=== PATIENT | male | born 1965 | race Caucasian/White ===

== ENCOUNTER 2017-08-16 16:37 | Inpatient (IN) | payer OTHER ==
[~2017-08-16] VITALS: Ht 180.3 cm; Wt 80.5 kg
--- NOTE | 2017-08-16 19:16 | IP CRISIS DIAG ASSESS PSYCH ---
Diagnostic Assessment Basic Assessment Insurance Authorization: Insurance #1: Insurance name: DEPARTMENT OF [facility] Phone number: Policy number: [id number] Group number: Authorization number: Primary Care Physician: Patient's PCP: Unknown PCP's Phone Number: Patient's Quote: "Cymbalta was not working... feeling my heart going fast" Present Illness: Pt is a 51 year old male BIBA as a Direct Admit from the [place] ED. 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 Pt is currently diagnosed with Major Depressive Disorder, Severe, Recurrent. He has had 1 Suicide Attempt 20 years ago when he was in the in [place]- he jumped off the bridge that was 30' high which resulted in splecnectomy, multiples fractures including a skull fracture. He also has chronic lower back pain as a result of S.A. Pt has had 1 impatient hospitalization post S.A. 20 years ago. He is currently in outpatient treatment with Donald Roach APRN at the [place] outpatient clinic. His most recent appointment was on 08/06/17. He recently started Cymbalta and Trazodone. Past medications include nortriptyline, paxil, zoloft, and wellbutrin. He stated that Wellbutrin really helped him the best and he felt better when taking it. Recently, he has become increasingly depressed and increased isolation- not in touch with his brother in 2 weeks (whom he typically speaks to daily). [facility] flat affect. He presented with anhedonia, decerased concentration, memory loss, inablity to stay focused on tasks and decreased appetite. He does not have an active plan to commit suicide or current those to kill himself however he does think that he should have succeeded in killing himself 20 years ago. He denies HI and AH/VH. 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 He further reports patinet is dysfunctional- not answering questions, rocking from side to side and having long pauses between answers. It should be noted that patient presented the same way, not answering quesitons therefore this document is being completed based on paperwork sent over from the [place]. Mr. Dawkins additionally reported that the patient was walking around like a "zombie". Patient's Address: [address] [place] [address] Other Phone Number: Who Do You Live With? Other (see notes) (lives at [facility]) Feel Safe Where You Live? Yes Marital Status: Do You Have Children? Yes Ages? unk Primary Language? Macanese Language(s) Spoken At Home: Macanese Family/Informants Interviewed: no family/collateral ID'd Allergies - Coded Allergies: morphine (UNKNOWN 08/16/17) Consequences of Psych Med Use: Patient recently started Cymbalta and reports feeling dizzy and an increased heart rate. Patient reports Wellbutrin worked the best in the past. Toxicology Screen Completed? Yes Results: negative Symptoms of Use: n/a Past History Past Medical History Medical History: Depression Past Surgical History Surgical History non-contributory Abuse/Trauma History Trauma History/Current Trauma: Denies Legal History Current Legal Status: none Have you ever been arrested? No Psychosocial History Strengths/Capabilities: patient has had stable housing with [facility] for 6 years. Psychiatric Treatment History Psych Treatment Psychiatric Treatment Yes Inpatient Treatment Yes Outpatient Treatment Yes Location of Treatment [place]- [place] last appt 08/06, inpatient 20 years ago post S.A. Reason for Treatment depression and SI Dates of Treatment currently pt at [place] outpatient; inpatient 20 years ago Response to Treatment fair Diagnosis by History: Major Depressive Disorder, Severe, Recurrent Risk Factors: high anxiety/distress, history of suicide atmpts, SA/MH hospitalized, lack of outcome concern, male, limited support Substance Use/Abuse History Drug Use/Abuse minimum 12mo Hx Substances Used/Abused No Substance Abuse Treatment Substance Abuse Treatment Past Substance Abuse [place] No Sexual History Sexually Active No Sexual Orientation Heterosexual Current Mental Status Mental Status Orientation: Person, Place, Situation Affect: Anxious, Flat, Hopeless, Sad Speech: Soft Neuro-vegetative: Anhedonia, Concentration Poor, Helpless, Loss of Interest Appearance Appearance- Dress/Hygiene: Patient presented in hospital attire - blue paper scrubs as he was just tranferred from the [place] ED to . No remarkable features. Behaviors Thought Process: WNL Thought Content: WNL Memory: WNL Insight: Poor SI/HI Risk Assessment - Minimum 6mo History- Past Suicidal Ideation/Attempts Yes Current Suicidal Ideation/Att No Past Homicidal Ideation/Att: No Current Homicidal Ideation/Attempts No Needs/Init TX Plan/Goals: Elevate mood medication evaluate increase social supports AUDIT-C Questionnaire: AUDIT-C Questionnaire: Response Value ETOH use in the past year Never 0 # drinks typical/day Doesn't Drink 0 6 or > drinks per occasion Never 0 Total 0 DSM5/PS Stressors/Medical Prob Diagnosis' (DSM 5, Stressors, Medical): F33.2 Major Depressive Disorder, Severe Recurrent Z63.4 Uncomplicated Bereavement - father recently Recent unemployment Problems related to primary support group Chronic lower back pain Current GAF: 25
[2017-08-16 19:50] VITALS: BP 112/67
[2017-08-16] MEDS ORDERED: CYCLOBENZAPRINE10 M1 PO (19:59)
[2017-08-16] MEDS ORDERED: ATIVAN0.5 M1 PO (20:00)
[2017-08-16] MEDS ORDERED: MULTIVITAMINS1 EAC9 PO (20:02)
[2017-08-16] MEDS ORDERED: MELOXICAM15 M1 PO (20:02)
[2017-08-16] MEDS ORDERED: QUETIAPINE FUMA25 M1 PO (20:05)
[2017-08-16] MEDS ORDERED: OS-CAL 500+D31 EAC1 PO (20:06)
[2017-08-16] MEDS ORDERED: DULOXETINE HCL20 MG PO (20:07)
[2017-08-16] MEDS ORDERED: TRAZODONE HCL100 M1 PO (20:08)
[2017-08-16] MEDS ORDERED: AMBIEN10 M1 PO (20:08)
[2017-08-16] MEDS ORDERED: B-121000 MC3 PO (20:09)
--- NOTE | 2017-08-16 20:53 | History & Physical ---
General Information and HPI MD Statement: I have seen and personally examined ROBBY CATHERINE and documented this H&P. The patient is a 51 year old M who presented with a patient stated chief complaint of [depression]. Source of Information: patient, [place] records Exam Limitations: no limitations History of Present Illness: 51 yo M a [place] with h/o MDD, migraine, GERD, multitrauma after suicide attempt (1996) resulting in splenectomy, skull, rib and hip fractures, chronic back pain is a direct admit from the [place] for management of depression and suicidal ideation. Please refer to Psych H and P for full details. Patient c/o palpitations when he gets anxious, otherwise denies chest pain, dyspnea, nausea, diarphoresis, lightheadedness, GI or symptoms. He reports a h/o arthritis for which he is on meloxicam and chronic back pain with spasms for which he takes cyclobenzaprine. He recently started cymbalta and thinks it made him dizzy with palpitations. Allergies/Medications Allergies: Coded Allergies: morphine (UNKNOWN 08/16/17) Home Med list Calcium Carbonate/Vitamin D3 (Os-Antonio 500+D3 Caplet) 500 MG-200 TABLET 1 TAB PO BID HEALTH SUPPLEMENT (Reported) TAKE WITH FOOD Cyanocobalamin (Vitamin B-12) (B-12) 1,000 MCG TABLET 1,000 MCG PO DAILY HEALTH SUPPLEMENT (Reported) Cyclobenzaprine HCl 10 MG TABLET 10 MG PO TIDPRN PRN SPASMS (Reported) Duloxetine HCl 20 MG CAPSULE.DR 20 MG PO DAILY MENTAL HEALTH (Reported) Lorazepam (Ativan) 0.5 MG TABLET 0.5 MG PO TIDPRN PRN ANXIETY (Reported) Meloxicam 15 MG TABLET 15 MG PO DAILY ANTI-INFLAMMATORY (Reported) Multiple Vitamin (Multivitamins) 1 EACH TABLET 1 TAB PO DAILY HEALTH SUPPLEMENT (Reported) Quetiapine Fumarate 25 MG TABLET 12.5 MG PO AT BEDTIME PRN INSOMNIA (Reported ) Trazodone HCl 100 MG TABLET 100 MG PO AT BEDTIME SLEEP HELP (Reported) Zolpidem Tartrate (Ambien) 10 MG TABLET 10 MG PO AT BEDTIME PRN SLEEP ( Reported) Compliance With Home Meds: POOR Past History Medical History Neurological: migraine EENT: NONE Cardiovascular: NONE Respiratory: NONE Gastrointestinal: GERD Hepatic: NONE Renal: NONE Musculoskeletal: chronic back pain, osteoarthritis, FRACTURES L4-5, S1, DEG. 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 FATHER (Renal failure). Psychosocial History Where do you live? Home Who Do You Live With? self Services at Home: None Primary Language: Gibraltarian Smoking Status: Former Smoker (Quit in 2000) ETOH Use: denies use (quit in 2007) Illicit Drug Use: denies illicit drug use Functional Ability ADLs Independent: dressing, eating, toileting, bathing. Ambulation: independent IADLs Independent: telephone, transportation. Review of Systems Review of Systems Constitutional: Denies: chills, fever, weakness. EENTM: Reports: no symptoms. Cardiovascular: Reports: palpitations. Denies: chest pain, edema, syncope. Respiratory: Denies: cough, short of breath, sputum production, wheezing. GI: Denies: abdominal pain, constipation, diarrhea, nausea, vomiting. Genitourinary: Denies: dysuria, frequency, pain. Musculoskeletal: Reports: back pain. Denies: joint pain, joint swelling, neck pain. Skin: Reports: no symptoms. Neurological/Psychological: Reports: see HPI. All Other Systems: Reviewed and Negative Exam & Diagnostic Data Last 24 Hrs of Vital Signs/I&O Vital Signs Date Time Temp Pulse Resp B/P B/P Pulse O2 O2 Flow FiO2 Mean Ox Delivery Rate 08/16 1950 99.0 96 112/67 Physical Exam General Appearance Alert, Oriented X3, Cooperative, No Acute Distress, Flat affect Skin No Rashes, No Breakdown, No Significant Lesion HEENT Atraumatic, PERRLA, EOMI, Mucous Membr. moist/pink Neck Supple Cardiovascular Regular Rate, Normal S1, Normal S2, No Murmurs Lungs Clear to Auscultation, Normal Air Movement Abdomen Normal Bowel Sounds, Soft, No Tenderness Neurological Exam Findings: Normal Gait, Normal Speech, Strength at 5/5 X4 Ext, Normal Tone, Sensation Intact, Cranial Nerves 3-12 NL Cranial Nerves II through XII: Intact Extremities No Edema, Normal Pulses, No Tenderness/Swelling Last 24 Hrs of Labs/Donal: Labs reviewed from the [facility] hospital (Aug 15): WBC 7.6 Hb 15.6 Hct 45.1 Platelet count 382 Na 142 K 4.0 BUN 19 Creat 0.8 LFTs normal Urine tox screen negative UA negative Diagnostic Data EKG Results Sinus rhythm (done at the [facility]) CXR Results -- Assessment/Plan Assessment: 51 yo M a [facility] with h/o MDD, migraine, GERD, multitrauma after suicide attempt (1996) resulting in splenectomy, skull, rib and hip fractures, chronic back pain is a direct admit from the [place] for management of depression and suicidal ideation. - Continue management per Psych team. - Home medications reviewed and continued. - DVT ppx low risk, early ambulation. As Ranked By This Provider Problem List: 1. Status post splenectomy 2. Chronic back pain 3. Suicidal ideation 4. Depression Miscellaneous Miscellaneous Documentation Attending Case Discussed With: Amber Victoria MD Primary Care Physician: Unknown Patient sees these Specialists PCP and psychiatrist at the [facility] Level of Patient Care: BHARTI Potter MD Review Statement Attending Statement Attending MD Statement: examined this patient, discuss w/resident/PA/SLEEVE BASTER
--- NOTE | 2017-08-16 20:53 | Admission Certification ---
Admission Certification Certification Statement - As attending physician, I certify that at the time of - admission, based on clinical presentation, severity of - symptoms, need for further diagnostic testing and - therapeutic interventions, and risk of adverse outcomes - without in-hospital treatment, in my clinical assessment, - this patient requires an acute hospital stay for a minimum - of two nights or longer. I have also considered psychsocial - factors such as support system, advanced age, financial - issues, cognitive issues, and failed out-patient treatments, - past re-admission history, safety of patient, and lack of - compliance as applicable. Specific rationale supporting this admission is: Depression, suicidal ideation.
[2017-08-17 08:10] VITALS: BP 98/70
[2017-08-17 12:08] VITALS: BP 112/69
[2017-08-17 16:19] VITALS: BP 103/74
--- NOTE | 2017-08-17 16:35 | CPS PROVIDER INIT ASMT PSYCH ---
Psychiatric Admission Talent Rep's Note Reviewed: Yes Patient Seen and Examined: Yes Identifying Information: 51 yo DWM admitted on 08/16/17 on a voluntary basis, referred by [facility] ER. Hx recurrent major depression and suicide attempt 20 years ago when he jumped off a 30' high bridge while serving in the in [place]. Chief Complaint: Depression. Reaction to Hospitalization: "I really don't want to be hospitalized." History of Present Illness Onset of Illness: 20+ years ago. Condition exacerbated after father in 11/01. Out of work since 06/20/17. 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 Patient was feeling dizzy , was not able to concentrate, had become dysfunctional, not answering questions , rocked from side to side and had long pauses between answers. Reportedly was having memory problems. Was reportedly walking around like a zombie. More depressed and isolative, flat, anhedonic. Reportedly thought he should have succeeded in killing himself 20 years ago. Problem(s) Justifying Need for Admission: Passive SI. Increased depression. Not functioning. Other HPI: In April, was trying to go from 1 job to the next. Work got too heavy. Went to another job. Out of work since 06/20/17. Reports he doesn't know what to feel at the moment, unable to express in certain terms. Mood has been low since father at 85 yo from kidney failure in 11/01. Patient's 89 yo mother is home all alone and can't get food for herself. Patient had been been helping her but has not been able to since , so patient's older brother has stepped in. Sleep: can't sleep without trazodone. Appetite: fair. Energy: low to middle. Past Psychiatric History Past Diagnosis(es)- if any: Major depression. Past Precipitating Factors- if any: Unknown. - Include inpatient and outpatient treatment Treatment History: [facility] saw Winsome RoachMARGOT on 08/06/17. Inpatient at a hospital in [place] 20 years ago after jumping off a bridge. History of Suicide Attempts or Gestures Jumped off a bridge 20 years ago. Sustained multiple injuries. Substance Abuse History: Stopped tobacco in 2000. Stopped alcohol in 2007 No MJ, cocaine or other drugs. Allergies: Coded Allergies: morphine (UNKNOWN 08/16/17) Home Med List: Meloxicam 15 mg qPM with food. Vit B12 1000 mcg daily. Cymbalta 20 mg daily since 08/06/17. MVI daily. Ca 500 + Vit D 200 b.i.d. with food. Trazodone 100 mg qhs Ambien 10 mg qhs prn Seroquel 12.5 mg qhs prn Cyclobenzaprine 10 mg tid prn - Include any medical condition(s) that may - impact the patient's recovery/remission Past Medical History: Low B12. Fx's L elbow, L hip. Spenectomy. Skull fx. ?TBI. DJD L4-5, S1. Past History Medical History Neurological: migraine EENT: NONE Cardiovascular: NONE Respiratory: NONE Gastrointestinal: GERD Hepatic: NONE Renal: NONE Musculoskeletal: chronic back pain, osteoarthritis, FRACTURES L4-5, S1, DEG. JT DISEASE Previous skull, left hip, rib fractures - multitrauma from suicide attempt Psychiatric: depression Endocrine: NONE Blood Disorders: NONE Cancer(s): NONE ROW BOSS/Reproductive: NONE History of MRSA: No History of VRE: No History of CDIFF: No Isolation History: Standard Surgical History Surgical History: splenectomy Psychiatric Family/Social Hx Family History Psychiatric Illness: Mother might have OCD. Substance Use: None. Suicides: None. Social History Living Situation: Living at [facility] x 6 years. Significant Relationships (family/friends): . Father . Has 23 yo D who lives in [place] with her mother. Education: HS grad. Vocation/Occupation: Unemployed. On VA disability 50% service-connected. Did not see combat. Honorable discharge. Legal: No arrests. Healthly Behaviors Screening Tobacco Screening Tobacco Use from ED Docu: Never used - If tobacco counseling indicated - the following topics are required. - #1 Recognizing dangerous situations. - #2 Coping Skills. - #3 Basic information about quitting. Status of Tobacco Cessation Counseling: Not Applicable Cessation Med Status Not Applicable Alcohol Screening - ETOH screen POS if BAL >=80 or Audit-C>= M4/F3 Audit-C Score from Diag Assess: 0 Alcohol Use Screening Results: Neg per Audit C &/or BAL - If ETOH counseling indicated - the following topics are required. - #1 Express concern about the patient's - drinking at unhealthy levels, include informing - of national norms for moderate drinking: - men <= 14 drinks/week, max 4 drinks/occasion - women <= 7 drinks/week, max 3 drinks/occasion - #2 Providing feedback, including linking alcohol to - negative physical effects (liver injury, hypertension) - negative emotional effects (relationship problems and - depression) - negative occupational consequences (reduced work - performance) - #3 Advising the patient to abstain from alcohol or - to drink below national norms for moderate drinking - (as listed above). Status of ETOH Use Counseling: N/A B/C NO ETOH Use Metabolic Screening - Screen if on a Neuroleptic Medication - Metabolic screening should include: - Blood Pressure, BMI, Glucose or Hgb A1c, & a - Lipid profile from within the past 365 days. Metabolic Screening ([x]) Not Applicable, patient not on a neuroleptic. OR () Patient on a neuroleptic(s) . Enter below results for Hemoglobin A1C, and lipid panel if obtained during the last 365 days. BMI: 24.000 Blood Pressure: 103/74 Laboratory Results From [facility] (If applicable): Exam and Plan Mental Status Examination Ambulation Status: Unremarkable. Appearance: Thin WM in blue paper scrubs, bearded. Has sniffles. Attitude towards examiner: Polite, cooperative. Psychomotor activity: No psychomotor agitation/retardation. Behavior: Unremarkable. Quality of speech: Slow to answer. Normal in volume, tone. Affect: Depressed. Mood: Low, down, helpless. Sad: guesses 6/10. Anxiety ~7/10. Feels hopeless. Denies feeling worthless but doesn't see how he will be able to move forward at this moment. Feels guilty he can't help his mother. Suicidal Ideation: Denies active and passive SI. Homicidal Ideation: Denies HI. Hallucinations: Denies AH and VH. Paranoid/Delusional Material: Denies PI and magical blankenship. Difficulties with thought organization: Slowed but otherwise unremarkable. Insight: Limited. Judgment: Poor. Orientation: Ox3 except said 08/16/17. Cognition: Slowed, otherwise unremarkable. Memory Function: Grossly intact. Estimate of intellectual functioning: Average. Assets/Strengths Patient Identified Assets/Strengths: A long time ago, used to play the [employer]. Impression/Plan Impression and Plan: Patient is here with recurrent depression in the context of father's in , unemployment since 06/20/17, and inability to help his mother. Hx jumping from a bridge 20 years ago with skull fx. I suspect there was a TBI. - Include all active medical diagnosis that require tx DSM 5 Diagnosis(es): Major depression, recurrent, severe. R/o old TBI. - Initial Tx Plan for Active Psych & Medical Conditions Treatment Plan: The patient will be monitored on the unit for safety and mood disorder. Discontinue 1:1 sitter. Increase Cymbalta to 20 mg b.i.d. Consider adding/switching to Wellbutrin. Additional information is needed from collaterals. Anticipate once clinically stable, that the patient will return home and resume tx at the [facility]. - Factors that would help patient function - in a less restrictive setting. Factors: Improved mood. Non-suicidal.
[2017-08-17 19:56] VITALS: BP 105/69
[2017-08-18 07:44] VITALS: BP 118/77
[2017-08-18 12:06] VITALS: BP 113/71
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
[2017-08-18 15:56] VITALS: BP 118/64
--- NOTE | 2017-08-18 16:22 | CP SOUTH PROGRESS NOTE PSYCH ---
Psych (Inpt) Progress Note Progress Note Include the following elements, when applicable: Involvement in the active treatment of the patient with behavioral observations of the patient and the patient's response to the treatment. Review of the ongoing treatment process in the context of the treatment plan. Indication of how multi-disciplinary staff members are carrying out the treatment plan. Plans for future interventions and recommendations for revision of the treatment plan. Liaison with other physicians/providers. Progress Note: The patient was reviewed with unit the unit staff and seen 1:1. We reviewed the inpatient notes. Mr. Kingston is being hospitalized for depression and grave disability. He presents as tall, slender, very pale male, wearing hospital issued paper scrubs. He is very guarded and suspicious, appears anxious and is uncomfortable and in pain (reports back pain). The patient asks about placing 3 days letter for discharge. We explained to him the procedure placing for 3 days letter. We also discussed about the motive of his hospitalization, the way he was currently feeling, and the potential benefit of continuous stay on an inpatient setting. He agrees to continue staying. The patient speaks with slow, interrupted speech, he is anxious, continuously tapping his foot. He says he is uncomfortable and anxious around all these people. He was worried about tomorrow and the groups and what was expected of him. He responded well to reassurance and support. The patient's thoughts were goal directed, there was no overt psychosis, he denied suicidal/homicidal ideation, auditory/visual hallucinations, stated that the medication seems to be helpful. The patient was oriented to time, place, person, situation. He seems to have intact memory, was slow to respond to questions but gave mostly pertinent answers. He agreed to continue with the inpatient care, we will continue present management and daily evaluation by the nursing staff and the unit psychiatrist for mood, suicidality, function.
[2017-08-18 19:51] VITALS: BP 126/76
[2017-08-19 07:42] VITALS: BP 136/80
[2017-08-19 12:19] VITALS: BP 136/77
--- NOTE | 2017-08-19 13:32 | CP SOUTH PROGRESS NOTE PSYCH ---
Psych (Inpt) Progress Note Progress Note Include the following elements, when applicable: Involvement in the active treatment of the patient with behavioral observations of the patient and the patient's response to the treatment. Review of the ongoing treatment process in the context of the treatment plan. Indication of how multi-disciplinary staff members are carrying out the treatment plan. Plans for future interventions and recommendations for revision of the treatment plan. Liaison with other physicians/providers. Progress Note: Roopa Moulton MD's note reviewed. Case and treatment plan discussed in team meeting. Staff reports that the patient appears depressed. Has reported that he feels strange being here. Also displaying a flat affect. Patient seen at 10:26 AM. States "didn't sleep, hardly, and I just don't know what I'm doing." He appears physically uncomfortable, restless in chair, rocking. He gently hit his head on the wall during rocking. Appears depressed. I asked about sad mood, and he reported he has difficulty giving answers. States he is just confused as to why he is here. Has thought blocking. May have some tardive dyskinesia of the face. When asked if feeling hopeless, he responded "I don't know what I'm feeling at the moment." Denies suicidal and homicidal ideation. Denies auditory and visual hallucinations and paranoid ideation. Reports appetite is average, he guesses. Reports energy is low, he supposes. Agrees to increase trazodone to 150 mg q.h.s. standing. States this place is "[facility]." I asked him to reconsider and he answered [facility]. He is oriented to person and date. Reports tolerating medications, but when he lies down at night after taking medications, he head feels his head buzzing at the temples. Not experiencing this symptom at the moment. IMPRESSION: Slow progress. Continue present treatment plan. Monitor response to increase in Cymbalta dose. Additional information is needed from collaterals, including outpatient prescriber. Continues to require inpatient level of care.
[2017-08-19 15:52] VITALS: BP 113/69
--- NOTE | 2017-08-19 16:53 | SOCIAL WORKER PROG NOTE PSYCH ---
Social Work Progress Note Progress Note 10:46am This newswriter met with patient. (Patient is being followed by Muna Leon LCSW and will be meeting with her for ongoing treatment while on [facility]). Patient was barely able to engage in this conversation. He shifted in his chair throughout the meeting and made minimal to no eye contact. Patient presented as depressed with delayed speech and often asking for questions to be repeated. Patient appeared to struggle in formulating a response and described his thoughts as slow. Patient requested to meet at another time (later today or tomorrow) and the meeting ended. He returned the group he had been previously attending.
[2017-08-19 19:34] VITALS: BP 132/80
[2017-08-20 07:53] VITALS: BP 110/66
--- NOTE | 2017-08-20 11:25 | SOCIAL WORKER PROG NOTE PSYCH ---
Social Work Progress Note Progress Note Rashid was able to carry a conversation today, with some delayed response. Presented as depressed, anxious, and possibly paranoid. He had to think about whether or not he was going to sign releases for people, but he eventually signed for the [facility], his Brother Roger, and the house managers where he lives Brandee and Edilberto. He shared that he has been stressed over lack of employment and finances. Lives in a [facility] called [employer]. He pays little rent right now from his VA check of 855.00 a month. He feels pressured to find a job, because he feels obligated to pay more. He also has been sued by [employer] due to an inablilty to pay, which has resulted in a monthly fee for him. He doesn't feel he is functioning well right now. He said since his Father in October he has not been doing well. He is having trouble organizing his thoughts and focusing. Had a difficult time rating his depression today, but eventually said a 6 (1-10, 10 being worst). He denies AH/ VH and denies SI today. He feels that everything is a "catastrophe" right now. He mentioned speaking with his house managers Edilberto and Brandee and is expecting one of them to bring some clothes for him today. I told him I will reach out to them to confirm. Called and Mrs. Dawkins. I was able to speak with them both. They shared their concern for Rashid's decompensation. They are wondering if he is going to be capable of returning to the residence, as it is not monitored by any staff. They haven't been concerned for his safety or anyone elses, but stated that he has been so depressed and isolative he is not functioning. They only check in with folks there about 1x a week. They are wondering if he may be eligible for a VNS. I told him I will check in about that. They felt since seeing the prescriber recently at the [facility] he was doing worse. They said financially he is in ok shape and they are not concerned about his inability to work right now. She mentioned that he is focused alot on "conspiracy theories with the government." Mr. Dawkins will bring Rashid in some clothes tonight during visiting hours.
[2017-08-20 12:20] VITALS: BP 118/67
[2017-08-20 16:09] VITALS: BP 126/75
--- NOTE | 2017-08-20 16:33 | CP SOUTH PROGRESS NOTE PSYCH ---
Psych (Inpt) Progress Note Progress Note Include the following elements, when applicable: Involvement in the active treatment of the patient with behavioral observations of the patient and the patient's response to the treatment. Review of the ongoing treatment process in the context of the treatment plan. Indication of how multi-disciplinary staff members are carrying out the treatment plan. Plans for future interventions and recommendations for revision of the treatment plan. Liaison with other physicians/providers. Progress Note Case and treatment plan discussed in team meeting. Staff reports that the patient has been attending groups. Appearing depressed and slowed. Said he felt odd. Out in the milieu more, interacting with others. Patient seen at 10:53 AM. He is dressed in blue paper scrubs. States "again, being woken up at night, banging of pipes wakes me up." Patient seems a little perplexed. States he cannot put down on paper what he needs to. Complains of problems with comprehension. His speech today is more fluid. Affect is anxious. Mood is not happy. Rates sad mood 6/10, he guesses. Rates anxiety about 6/10. Feels hopeless due to stressors. Feels helpless, continuing to feel like he wants to give up. Denies feeling worthless. Feels guilty for things he has not managed well in his life (vague). Denies active and passive suicidal ideation. Denies homicidal ideation. Denies auditory and visual hallucinations and paranoid ideation. Patient reports he has a history of ruminations. Major risks and benefits of Zyprexa (to help with patient's thought disorganization) were discussed with the patient, including risks of metabolic syndrome, with weight gain, diabetes, hypertension and hyperlipidemia, and also risk of irreversible tardive dyskinesia. Patient agrees to consider Zyprexa, which I have ordered for him and he may refuse. Patient was advised to avoid drugs and alcohol while on this medication. Reports appetite and energy are fair. IMPRESSION: Slow progress. Continue present treatment plan. Monitor response to addition of Zyprexa. Patient continues to require inpatient level of care.
[2017-08-20 20:02] VITALS: BP 112/62
[2017-08-21 08:00] VITALS: BP 115/63
--- NOTE | 2017-08-21 10:05 | SOCIAL WORKER PROG NOTE PSYCH ---
Social Work Progress Note Progress Note Rashid shared that he was awake most of the night. Reports ruminating thoughts and that he can't stop them. Reports continued sadness and depression with anxiety. No SI today. Continues to be slow to respond as his thoughts are still disorganized. He feels he is struggling to maintain focus at groups. Talked about speaking with the group tab machine operator to give/ get feedback. He seems hard on himself. He said he has been his whole life. He was happy to receive a visit last night from Edilberto (dope house operator helper where he resides). He said it was nice to see a familiar face. Talked about how his condition didn't happen overnight and that it is going to take time and patience in getting back to feeling well. I told him I would be looking into whether or not the ID would cover any nursing staff for support where he lives. He wasn't sure. He also mentioned that transportation to [facility]. was difficult for him. Stated he is supposed to look into the ID transportation.
[2017-08-21 12:24] VITALS: BP 122/62
--- NOTE | 2017-08-21 12:58 | CP SOUTH PROGRESS NOTE PSYCH ---
Psych (Inpt) Progress Note Progress Note Include the following elements, when applicable: Involvement in the active treatment of the patient with behavioral observations of the patient and the patient's response to the treatment. Review of the ongoing treatment process in the context of the treatment plan. Indication of how multi-disciplinary staff members are carrying out the treatment plan. Plans for future interventions and recommendations for revision of the treatment plan. Liaison with other physicians/providers. Progress Note: Case and treatment plan discussed in team meeting. Staff reports that the patient appears sullen, flat and depressed. Refused olanzapine twice yesterday. Told SW he had poor sleep. Ruminating a lot. Patient seen at 10:53 a.m. Was in group prior to my meeting with him. Dressed in street clothing. Slow to communicate but speech is more fluid than a couple of days ago. Seated and rocking on his feet. Complains of MNA from pipes banging. Not feeling very rested at all. Refused olanzapine but plans to start it tonight. Appears depressed and somewhat anxious. Mood: reports he is not expressive enough. He is concerned "how to get all the dots connected" to get well and back home. Sad 6/10. Anxiety probably 5-610. Feels hopless, helpless and worthless. Feels guilty, that he could have done more about things in his life (vague). Denies SI, HI, AH, VH and PI. Appetite: fair. Energy: between low and fair. Tolerating medications but wants Cymbalta changed to all a.m. dosing. IMPRESSION: Slow progress. Continue present treatment plan. Monitor response to addition of olanzapine. We will consolidate Cymbalta. Continues to require inpatient level of care.
--- NOTE | 2017-08-21 13:11 | IP INCIDENTAL NOTE PSYCH ---
Incidental Note Notation: left at [facility] for Winsome Roach APRN to call me.
[2017-08-21 15:53] VITALS: BP 110/58
[2017-08-21 19:53] VITALS: BP 116/73
[2017-08-22 08:12] VITALS: BP 120/65
[2017-08-22 12:09] VITALS: BP 118/69
--- NOTE | 2017-08-22 13:43 | SOCIAL WORKER PROG NOTE PSYCH ---
Social Work Progress Note Progress Note Rashid continues to present with a flat depressed affect. He is progressing in verbalizing things, but remains a bit slow. He is struggling to think that things will improve. Talked alot about having daily affirmations and small goals each day. Talked about challenging his negative thoughts. He stated after years of having them it will be hard. Empathized with the work and energy it takes, but encouraged him to keep trying. Attending groups today and spending time reading. He is open to a family meeting with his Brother Roger. I left him a voicemail to try and arrange something. Connected with his Brother around 5pm via cell . Brother's perspective is that lack of sleep has caused his symptoms to worsen. Brother will call me Friday to see when he can come in.
--- NOTE | 2017-08-22 15:28 | CP SOUTH PROGRESS NOTE PSYCH ---
Psych (Inpt) Progress Note Progress Note Include the following elements, when applicable: Involvement in the active treatment of the patient with behavioral observations of the patient and the patient's response to the treatment. Review of the ongoing treatment process in the context of the treatment plan. Indication of how multi-disciplinary staff members are carrying out the treatment plan. Plans for future interventions and recommendations for revision of the treatment plan. Liaison with other physicians/providers. Progress Note: Case and treatment plan discussed in team meeting. Patient apparently continued to think about taking Zyprexa but refused it again last night. Patient seen at 10:34 a.m. Moving slowly. Seems bewildered. Wants to know when he can get the pieces put together to get out of here. Thinking is slowed. Appears anxious, apprehensive, depressed and uncomfortable. Reports difficulty answering people's questions. Mood: "same as , fair." Sad 01/25. Anxiety -01/25. Feels hopeless and helpless. Feels worthless, "I'm unemployed, so yes." Feels guilty. Denies active and passive SI, HI, AH, VH and PI. Reports sleep is broken, as he is aware of everything around him and can't switch it off. Appetite is "fair, I suppose." Energy: still low. Tolerating current medications. I encouraged patient to take a "now" dose of Zyprexa. Next dose will be 2.5 mg qhs starting on 08/23/17. IMPRESSION: Slow progress. Remains ruminative and depressed. Continue present treatment plan.
[2017-08-22 16:27] VITALS: BP 115/66
[2017-08-22 19:42] VITALS: BP 119/74
[2017-08-23 08:13] VITALS: BP 121/59
--- NOTE | 2017-08-23 11:57 | CP SOUTH PROGRESS NOTE PSYCH ---
Psych (Inpt) Progress Note Progress Note Include the following elements, when applicable: Involvement in the active treatment of the patient with behavioral observations of the patient and the patient's response to the treatment. Review of the ongoing treatment process in the context of the treatment plan. Indication of how multi-disciplinary staff members are carrying out the treatment plan. Plans for future interventions and recommendations for revision of the treatment plan. Liaison with other physicians/providers. Progress Note: Chart reviewed. Progress discussed with nursing staff. Interviewed patient this morning. Patient reports having difficulty with motivation. "I'm having difficulty making a plan. "He reports his mood is down, denies SI or HI, denies AVH. Reports that sleep was somewhat difficult. Denies any physical complaints. Denies any medication side effects. Vital signs reviewed and were within normal limits. No new laboratory results today. Mental status exam: This is a well groomed man of apparent stated age, dressed appropriately. No psychomotor agitation, positive psychomotor retardation. No abnormal movements. Speech was quiet, limited in amount. Mumbled at times. Mood was "down, I can't even make a plan ", affect was constricted, non-labile. Thought process was mildly impoverished. Content without SI or HI. Denies perceptual disturbances. Cognition was grossly intact. Insight and judgment were fair. Assessment and plan: Mood remains low, with prominent anhedonic and amotivational features. Will continue present management as per primary team.
[2017-08-23 12:01] VITALS: BP 100/66
[2017-08-23 15:32] VITALS: BP 105/81
[2017-08-23 20:00] VITALS: BP 107/57
[2017-08-24 07:42] VITALS: BP 119/68
--- NOTE | 2017-08-24 11:24 | CP SOUTH PROGRESS NOTE PSYCH ---
Psych (Inpt) Progress Note Progress Note Include the following elements, when applicable: Involvement in the active treatment of the patient with behavioral observations of the patient and the patient's response to the treatment. Review of the ongoing treatment process in the context of the treatment plan. Indication of how multi-disciplinary staff members are carrying out the treatment plan. Plans for future interventions and recommendations for revision of the treatment plan. Liaison with other physicians/providers. Progress Note: Chart reviewed. Progress discussed with nursing staff. Interviewed patient this morning. He presents very similar to yesterday. Appears befuddled. "I can't make a plan ". We discussed various aspects of his life including his employment history, his social supports, and his goals, and in general voices primarily despair, unable to identify much of a future for himself. Does report that his main goal is resuming employment. He does deny any AVH, SI, or HI. Reports sleep has been difficult, primarily notes ruminative thoughts as being a barrier to sleep. We discussed increasing his Zyprexa at bedtime, however he was not interested in doing this at this time. Vital signs reviewed and were within normal limits. No new laboratory results today. Mental status exam: This is a well groomed man of apparent stated age, dressed appropriately in same clothes as yesterday. No psychomotor agitation, positive psychomotor retardation. No abnormal movements. Speech was quiet, limited in amount. Mumbled at times. Mood was "I'm really depressed ", affect was constricted, non-labile. +Thought latency. Thought process was mildly impoverished. Content without SI or HI. Denies perceptual disturbances. Cognition was grossly intact. Insight and judgment were fair. Assessment and plan: Mood remains low, with prominent anhedonic and amotivational features. Though perhaps beneficial, the patient was not interested in increasing his zyprexa dose today. Will continue present management as per primary team.
[2017-08-24 12:02] VITALS: BP 104/67
[2017-08-24 15:42] VITALS: BP 100/57
[2017-08-24 20:23] VITALS: BP 105/58
[2017-08-25 08:00] VITALS: BP 122/67
[2017-08-25 12:07] VITALS: BP 99/59
--- NOTE | 2017-08-25 13:29 | CP SOUTH PROGRESS NOTE PSYCH ---
Psych (Inpt) Progress Note Progress Note Include the following elements, when applicable: Involvement in the active treatment of the patient with behavioral observations of the patient and the patient's response to the treatment. Review of the ongoing treatment process in the context of the treatment plan. Indication of how multi-disciplinary staff members are carrying out the treatment plan. Plans for future interventions and recommendations for revision of the treatment plan. Liaison with other physicians/providers. Progress Note: Dr. Villasenor's notes reviewed. Case and treatment plan discussed in team meeting. Staff reports that on Friday, the patient was out in the milieu more. He went to groups. He was more isolative on Friday. We are trying to arrange a family meeting with brother. Dr. Villasenor recommended an increase in Zyprexa dose but patient has refused. Patient seen at 10:48 AM. He was resting in bed prior to my meeting with him in the office. Reports he is not really certain how he feels at the moment. Affect is blunted to flat. Reports Zyprexa makes him sleep a little longer and makes him sleepy. Currently appears awake and alert. Feels a little sedated. Mood is fair. Denies any change in mood on Zyprexa. Rates sad mood 6/10 anxiety "still about 5"/10. Feels hopeless, helpless, worthless and guilty. Denies suicidal and homicidal ideation. Denies auditory and visual hallucinations and paranoid ideation. He appears uncomfortable, befuddled, and he is noted to do hand-wringing. Reports appetite is fair, he guesses. Energy is low. Reports no change in ruminations. I recommended an increase in Zyprexa dose but he wants to wait 1 more day before deciding on an increase in dose. IMPRESSION: Slow progress. Continue present treatment plan. We will try to arrange a family meeting with brother and also a meeting with staff from his housing. Continues to require inpatient level of care.
--- NOTE | 2017-08-25 14:25 | IP INCIDENTAL NOTE PSYCH ---
Incidental Note Notation: Winsome Roach APRN left me a message this morning. I left her a VM to call me.
[2017-08-25 16:04] VITALS: BP 109/66
--- NOTE | 2017-08-25 17:00 | SOCIAL WORKER PROG NOTE PSYCH ---
Social Work Progress Note Progress Note Received a number from the [facility] to call a Paloma Mancuso clinical nurse custodial manager at [phone] ext. [phone] to discuss possible eligiblity for any nursing services. Called and left a number for her. Spoke with Rashid, who is continuing to present as hopeless and self-defeating. Talked alot about his thoughts and how they are getting in the way of him moving forward. He is having a hard time getting past his self-defeating thoughts. He was given homework to start a list of strengths. He stated he thought that his mental blocking would cause him to not be able to complete this task. Again encouraged him to tell himself he can do this and that he will work on it. Asked him why he didn't lay in bed all day ? What causes him to get up? He said "the human spirit wants to keep going." I told him he makes choices to get up, get dressed, eat ect.... Encouraged him to keep building upon those things.
[2017-08-25 19:56] VITALS: BP 106/61
[2017-08-26 08:11] VITALS: BP 101/72
--- NOTE | 2017-08-26 08:27 | SOCIAL WORKER PROG NOTE PSYCH ---
Social Work Progress Note Progress Note Spoke with Karissa Cortezdo at the [facility] [phone] ext. [phone]. She stated that she would help connect Rashid to a visiting nurse at discharge. She said usually she sets people up with about a month of visits and then the nurse assesses to see how it is going. She would like me to find an agency that will see him and then get back to her with their information and a definete discharge date when he is ready. She said he will have to see Winsome Roach APRN the day he is discharged to get his meds. Called and left a message with and Mrs. Dawkins to schedule a meeting. Received a call back. They are not available today or for a meeting. They stated Friday was the most convenient due to their schedule. They suggested I invite Agapito Williamson the renal case manager that works with Rashid. Agapito's number is [phone]. Rashid was in his bed laying down, but not sleeping late morning. Got up when prompted to meet. Asked him why he wasn't in group? He said he just has no motivation to go to group. His energy is low. He also feels frustrated that he is having trouble participating in the exercises. I told him it is okay to go and listen and that it is better to go and limit his participation then to not go. He did say he would go and most likely just listen. I informed him that I was trying to arrange a meeting with his supports for Friday. Continues to inform me of problems with his sleeping and falling asleep. He has been saying that he hears all the noises around the unit and it is keeping him up. Although , he had the same problem at home prior to admission. He has been trying ear plugs here, but he reports they aren't helping. He apologized for his delay in responses to me. He said he is still trying to work on focusing and organizing his thoughts. Called Agapito Williamson and spoke with him about coming to the meeting on Friday. He will most likely be able to come, but will confirm with me by tomorrow. Called Rashid's Brother Roger and invited him in for Friday. He said he will try and make it.
--- NOTE | 2017-08-26 10:53 | SOCIAL WORKER TX PLAN PSYCH ---
Treatment Plan - Please Document: - Evidence that there is ongoing collaboration between - the patient and the interdisciplinary team, - including the patient's active participation and - responsibility for engaging in the treatment regimen, - and that the treatment plan is individualized and - relevant to the patient's conditions. - Treatment plan should reflect documentation indicating - that all active therapeutic efforts are included. Strengths/Capabilities: patient has had stable housing with [employer] for 6 years. Physical Limitations (Interventions): None reported Patient Identified Trmt Goals: "To be able to function like I was." Discharge Plan: [facility] home and clinical servics with visiting nurse Problem/Goals #1 Problem #1: depression Goal (Short Term): Patient will be able to start a list of strengths Goal (Attendant Coin Operated Laundry): Patient will be able to verbalize future oriented thoughts and hopefullness Interventions: Patient will be offered medication management with the psychiatrist, patient will be offered groups on symptom management, coping skills, relaxation, focus group, goals group. clerical and administrative workers will assist patient in reframing negative thoughts and working from a strengths perspective. Behavioral Health Rn will coordinate with community supports, family or other supports. clerical and administrative workers will assist with aftercare planning. Modalities: groups/ individual DSM5/PS Stressors/Medical Prob Diagnosis' (DSM 5, Stressors, Medical): F33.2 Major Depressive Disorder, Severe Recurrent Z63.4 Uncomplicated Bereavement - father recently Recent unemployment Problems related to primary support group Chronic lower back pain Current GAF: 25 Treatment Team - Responsibilities of members of the treatment team include: - Medication Management- MD or HANDLE MAKER - Medication Administration and Monitoring- Nurse - Group Therapy- Occupational Therapist - 1:1 Therapy,Disch Planning,family involvement-Behavioral Health Rn
[2017-08-26 12:04] VITALS: BP 100/61
[2017-08-26 16:03] VITALS: BP 94/66
--- NOTE | 2017-08-26 16:12 | CP SOUTH PROGRESS NOTE PSYCH ---
Psych (Inpt) Progress Note Progress Note Include the following elements, when applicable: Involvement in the active treatment of the patient with behavioral observations of the patient and the patient's response to the treatment. Review of the ongoing treatment process in the context of the treatment plan. Indication of how multi-disciplinary staff members are carrying out the treatment plan. Plans for future interventions and recommendations for revision of the treatment plan. Liaison with other physicians/providers. Progress Note: Case and treatment plan discussed in team meeting. As of team meeting, staff reported that the patient was still in bed. Reports that he is not sleeping well. Ruminative. Patient seen at 2:25 PM with medical student. Patient was resting in bed but got up and met with us in the office. Reports he is still having issues with broken sleep. Now agreeing to increase Zyprexa dose to 5 mg nightly. Affect is calm and depressed. Speech seems more fluid than after admission. Mood: "I don 't know doctor. It's up and down. It's fair. Not knowing, I can't see the picture, getting out of here. What's it going to look like?" Rates sad mood "still 6"/10. Reports anxiety is still hanging at around 5/10. Feels hopeless because he cannot get out of here. I informed him that he can sign a 3-day paper to request termination of voluntary status. Feels helpless, worthless and guilty. Denies active and passive suicidal ideation. Denies homicidal ideation. Denies auditory and visual hallucinations. Denies paranoid ideation. Reports appetite is fair and energy is low. Reports tolerating medications but he notes frontal sinus pressure. I recommended saline nasal spray but he refused. Case reviewed this afternoon with Winsome Roach APRN. She reports that the patient was reluctant to get his treatment at the [facility]. He may have the option to get his treatment elsewhere under [facility]. IMPRESSION: Slow progress. Continue present treatment plan. Continues to require inpatient level of care. Family meeting with brother and with staff from his housing may prove useful. Monitor response to increase in Zyprexa dose tonight.
[2017-08-26 20:14] VITALS: BP 110/64
[2017-08-27 07:52] VITALS: BP 107/67
--- NOTE | 2017-08-27 08:50 | SOCIAL WORKER PROG NOTE PSYCH ---
Social Work Progress Note Progress Note Returned a call from Winsome Roach APRN [phone]. [phone]. Left her a return message. Spoke with Winsome about aftercare planning. She had an idea about [facility] [place]. The program is a 21 day residential program where people can stay after hospitalization. During time there, they attend [facility]. I told her I would talk to Rashid and get back to her. She will try to come to the meeting on Friday, but couldn't say it definetely. Met with Rashid, who was in bed and not in group. I asked if he had gone to any groups yesterday? He said he thought about going to Spirituality, but then didn 't go. I had him look at the board in the kitchen that had all of the groups on it and encouraged him to pick a group to go to today. He couldn't commit to any and stated "I'm going to try and go to an afternoon group." I talked with him about the idea of going to [facility]. I explained that we are looking at discharge for next week and it would be a nice option for him as he wouldn't have to travel back and forth to [facility]. I let him know our recommendation is for IOP and that he will need structure and continued tx when he leaves. Rashid had a difficult time processing the information and seemed ambivalent about staying at a program for 21 days due to fear of the unknown. Empathized with how that can be uncomfortable and shared that without uncomfortableness things don't change. Since he was having a hard time making a decision I recommended that he let Winsome do the referral and then a final decision could be made at Friday's supportive meeting here. He agreed. Called Winsome Roach APRN and left a message with that information.
--- NOTE | 2017-08-27 11:00 | CP SOUTH PROGRESS NOTE PSYCH ---
Psych (Inpt) Progress Note Progress Note Include the following elements, when applicable: Involvement in the active treatment of the patient with behavioral observations of the patient and the patient's response to the treatment. Review of the ongoing treatment process in the context of the treatment plan. Indication of how multi-disciplinary staff members are carrying out the treatment plan. Plans for future interventions and recommendations for revision of the treatment plan. Liaison with other physicians/providers. Progress Note: Case and treatment plan discussed in team meeting. Staff reports that the patient appears withdrawn and lethargic. We are trying to arrange a meeting with brother, provider from the [place], telephonic case manager, and housing staff for this Friday at 1 PM. Patient seen at 10:31 AM. He was resting in bed but got up and met with me in the office. Reports his mood is still low. Affect is calm and depressed. Reports having taken olanzapine 5 mg last night. Reports he really has not detected a difference just yet. I informed him that if he is safe and improved, we might be discharging him on Friday. Rates sad mood and anxiety both about 5/ 10. Feels hopeless still a bit. Feels helpless, worthless and guilty. Seems to be answering questions a little more quickly. Denies active and passive suicidal ideation. Denies homicidal ideation. Denies auditory and visual hallucinations and paranoid ideation. Sleep: states he still does not think it was enough. Reports he still has the same frequency of middle of the night awakenings. Appetite is fair. I advised patient to watch for increased appetite and weight on olanzapine. Reports energy is still low. IMPRESSION: Slow progress. Continue present treatment plan. Monitor response to recent increase in olanzapine. We will consider an increase in Cymbalta.
[2017-08-27 12:23] VITALS: BP 99/50
[2017-08-27 16:13] VITALS: BP 94/59
[2017-08-27 19:47] VITALS: BP 125/67
[2017-08-28 07:43] VITALS: BP 103/62
--- NOTE | 2017-08-28 11:25 | SOCIAL WORKER PROG NOTE PSYCH ---
Social Work Progress Note Progress Note Aircraft Cabin Cleaner met with Rashid in his room. Rashid was laying in bed and was reticent to speak to selling underwriter but eventually agreed. 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 He stated that he does not know anything about the [facility] program so he did not know how he felt about going to the program. Aircraft Cabin Cleaner asked Rashdi if he would like this selling underwriter to print out some information for him about the program, which he said he would like. Aircraft Cabin Cleaner asked Rashid what he would like to get out of treatment and what he would like his life to look like once he had completed treatment. He stated that he would like to get back to work, but that he was unsure of what kind of work he could do, as he had had a difficult time transitioning from his previous [employer] job to various jobs in the past. Additionally, he stated that he would like to get back to playing [employer] and computer games. Rashid and selling underwriter spoke a little about his time in the service. He told this selling underwriter that he had been in the [facility] for 11 years. 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 He said that he loved seeing [place] and all of the historical buildings and architecture. Aircraft Cabin Cleaner encouraged Rashid to try to go to groups, and if he was having a difficult time participating and answering questions, then he could, prior to the group, ask the manufacturing group leader if it would be okay for him to attend the group but just sit and listen. Rashid stated that he would try to do this during the afternoon. After this conversation selling underwriter returned to give Rashid a printout of information of the [facility] program. He thanked this selling underwriter and took the print-outs.
[2017-08-28 11:57] VITALS: BP 104/57
--- NOTE | 2017-08-28 13:25 | CP SOUTH PROGRESS NOTE PSYCH ---
Psych (Inpt) Progress Note Progress Note Include the following elements, when applicable: Involvement in the active treatment of the patient with behavioral observations of the patient and the patient's response to the treatment. Review of the ongoing treatment process in the context of the treatment plan. Indication of how multi-disciplinary staff members are carrying out the treatment plan. Plans for future interventions and recommendations for revision of the treatment plan. Liaison with other physicians/providers. Progress Note: Case and treatment plan discussed in team meeting. Staff reports that the patient isolates in bed. He comes out of his room for medications and vital signs. Not attending groups. Patient seen at 12:13 PM. He was resting in bed prior to meeting with me in office. Reports things are going "fair, Sir." Reports he wants to talk to hospital social worker about discharge planning. Affect is calm and blunted. Reports mood is unchanged, fair at present. Rates sad mood about 5/10 and reports anxiety is still 5/10. Feels hopeless. Feels helpless at this moment. Feels worthless and guilty. Denies active and passive suicidal ideation. Denies homicidal ideation. Denies auditory and visual hallucinations and paranoid ideation. Reports sleep is broken with middle of the night awakenings from hospital sounds. Reports appetite is fair and energy is still a bit low. Tolerating medications except for occasional dry mouth and dizziness. Does not feel dizzy or have dry mouth at this time. I asked about his head injury from jumping off a bridge 20 years ago. Reports he had loss of consciousness for unknown duration. 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 Patient agrees to increase Cymbalta dose to 60 mg daily. IMPRESSION: Slow progress. Continue present treatment plan. Continue Zyprexa at 5 mg q.h.s. We will now increase Cymbalta dose to 60 mg daily. Meeting is scheduled for 1 PM tomorrow. Patient continues to require inpatient level care. Consider addition of a stimulant, given likely TBI, although the patient seems reluctant.
[2017-08-28 16:06] VITALS: BP 110/58
[2017-08-28 19:51] VITALS: BP 110/68
[2017-08-29 07:54] VITALS: BP 124/72
--- NOTE | 2017-08-29 10:18 | SOCIAL WORKER PROG NOTE PSYCH ---
Social Work Progress Note Progress Note Called Winsome Roach APRN at the [facility]. Left a message inquiring about [facility] and when an opening would be available. Supportive meeting held with and Mrs. Dawkins from [facility], Agapito Williamson (field nurse case manager from [facility]), Rashid's Brother Rashid Duran, and Dr. Bowen. We discussed current mental status, difficulties with energy, sleep, and motivation. Talked about the referral to [facility] the [facility]. All agreed that sounded like the best option from [facility]. Rashid was not able to say that he definetely wanted to go there, but sounded open to it. He is fearful of the unknown. Encouraged him to make small goals, focus on the present. Everyone was very supportive at the meeting and encouraging. Everyone seemed to think Rashid had made some small progress, but he was not back to baseline and still seemed to be struggling. His Brother is concerned about his lack of sleep and inability to fall asleep. During the meeting we also talked about Rashid's Father's passing and the health condition of his Mother currently. Rashid's Brother shared that Mom is a hoarder and that they have struggled with that issue with her for a long time. It sounds like she has some supports and that Roger is helping with the things she needs. Talked about Rashid's role being to work on himself right now and get himself better. and Mrs. Dawkins seem more than welcome to let Rashid return to their program after he has completed [facility]. I told all I would be in contact after hearing more news about a potential opening. Rashid had a very flat/ constricted affect during the meeting. He spoke minimally. Had difficulty making eye contact. I did recieve a call from a Dalia at the [facility] who was calling about a consult. No specific details were left. Call back number is [phone]. I called and left a voicemail.
--- NOTE | 2017-08-29 12:09 | CP SOUTH PROGRESS NOTE PSYCH ---
Psych (Inpt) Progress Note Progress Note Include the following elements, when applicable: Involvement in the active treatment of the patient with behavioral observations of the patient and the patient's response to the treatment. Review of the ongoing treatment process in the context of the treatment plan. Indication of how multi-disciplinary staff members are carrying out the treatment plan. Plans for future interventions and recommendations for revision of the treatment plan. Liaison with other physicians/providers. Progress Note: Case and treatment plan discussed in team meeting. Staff reports that the patient hides in his room until groups are over. Meeting is scheduled for 1 PM today. Patient seen at 10:47 AM. He was sitting on his bed and came to meet with me in office. Reports he will try to get to the 11:30 AM group. He is eager for discharge. We discussed the [facility] at the [facility]. Affect is calm and depressed. Reports mood is "better, I suppose." States he feels sad at 5/10, he guesses. Reports anxiety is also still at 5/10. Feels hopeless and helpless. Reports he is doubting his self-worth. Feels guilty. Denies active and passive suicidal ideation. Denies homicidal ideation. Denies auditory and visual hallucinations and paranoid ideation. Reports sleep is marginally improved, if at all. Appetite is poor. Energy is still low. Tolerating medications well, without complaint. He identifies no new aspirations or goals. He plans to resume chess online. 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 I asked about contact with his daughter, and he reports it is minimal. IMPRESSION: Slow progress. Continue present treatment plan. Await outcome of today's 1 PM meeting. Anticipate likely discharge sometime next week. Hopefully patient can be placed at the [facility] at the [facility].
[2017-08-29 12:26] VITALS: BP 107/64
--- NOTE | 2017-08-29 15:28 | IP INCIDENTAL NOTE PSYCH ---
Incidental Note Notation: I joined meeting this afternoon for about 30 minutes with patient, patient's brother, staff from [facility] and Carolin Leon LCSW. Questions were addressed.
[2017-08-29 16:02] VITALS: BP 98/64
[2017-08-29 19:42] VITALS: BP 103/57
[2017-08-30 08:02] VITALS: BP 105/65
--- NOTE | 2017-08-30 08:47 | CP SOUTH PROGRESS NOTE PSYCH ---
See Addendum Psych (Inpt) Progress Note Progress Note Include the following elements, when applicable: Involvement in the active treatment of the patient with behavioral observations of the patient and the patient's response to the treatment. Review of the ongoing treatment process in the context of the treatment plan. Indication of how multi-disciplinary staff members are carrying out the treatment plan. Plans for future interventions and recommendations for revision of the treatment plan. Liaison with other physicians/providers. Progress Note: Pt notes "fair mood". Very concerned about taking additional medications. Feels that medications have been helpful overall and that is improved. Had visitors yesterday which he found to be supportive. Denies SI or HI. Current Medications Sig/Calista Start time Last Medication Dose Route Stop Time Status Admin Acetaminophen 650 MG Q6P PRN 08/16 1945 AC PO Al Hydroxide/Mg 30 ML Q4-6 PRN PRN 08/16 1945 AC Hydroxide PO Benztropine Mesylate 1 MG Q6P PRN 08/16 1945 AC PO Benztropine Mesylate 1 MG Q6P PRN 08/16 1945 AC IM Calcium/Vitamin D 500 MG 1/2H B/BREAKF/DINNER 08/17 1630 AC 08/30 PO 0629 Cyanocobalamin 1,000 MCG DAILY 08/17 1000 AC 08/29 PO 0800 Cyclobenzaprine HCl 10 MG Q8P PRN 08/16 1945 AC PO Duloxetine HCl 60 MG DAILY@0800 08/29 0800 AC 08/29 PO 0800 Gabapentin 300 MG Q6P PRN 08/16 2015 AC 08/24 PO 1330 Haloperidol 5 MG Q6P PRN 08/16 1945 AC PO Haloperidol 5 MG Q6P PRN 08/16 1945 AC IM Magnesium Hydroxide 30 ML AT BEDTIME PRN 08/16 1945 AC PO Meloxicam 15 MG DAILY@1800 08/17 1800 AC 08/29 PO 1732 Multivitamins 1 TAB DAILY 08/17 1000 AC 08/29 PO 0800 Olanzapine 5 MG AT BEDTIME 08/26 2200 AC 08/29 PO 214 Trazodone HCl 150 MG AT BEDTIME 08/19 2200 AC 08/29 PO 214 Laboratory Tests 08/30/17 0630: Triglycerides 84, Cholesterol 152, LDL Cholesterol, Calc 87, HDL Cholesterol 49, Cholesterol/HDL Ratio 3 Vital Signs Date Time Temp Pulse Resp B/P B/P Pulse O2 O2 Flow FiO2 Mean Ox Delivery Rate 08/30 0802 96.6 94 105/65 08/29 1942 97.2 106 103/57 08/29 1602 104 98/64 08/29 1226 92 107/64 MSE General appearance: fair hygiene and grooming; Attitude: cooperative; Eye contact: appropriate; Movement: + psychomotor slowing; Speech: nl fluency, nl rate/rhythm, nl volume, nl prosody; Mood: "fair" Affect: irritable, flat, appropriate, constricted, non-labile, congruent; Thought process: linear and goal-directed; Thought content: denied SI or HI, no paranoid ideation; Perception: denied hallucinations- auditory, visual, does not appear to be responding to internal stimuli; I/J: limited A/P: Pt with MDD admitted with SI with slight improvement in mood but remains very depressed. -Continue current medication regimen except to add melatonin 3mg for sleep -Encourage integration into the milieu
[2017-08-30 12:28] VITALS: BP 115/75
[2017-08-30 16:04] VITALS: BP 114/58
[2017-08-30 20:27] VITALS: BP 120/66
[2017-08-31 08:03] VITALS: BP 113/63
[2017-08-31 12:18] VITALS: BP 96/63
[2017-08-31 16:09] VITALS: BP 104/64
[2017-08-31 19:59] VITALS: BP 124/66
[2017-09-01 08:07] VITALS: BP 125/74
[2017-09-01 12:20] VITALS: BP 107/74
--- NOTE | 2017-09-01 14:00 | CP SOUTH PROGRESS NOTE PSYCH ---
Psych (Inpt) Progress Note Progress Note Include the following elements, when applicable: Involvement in the active treatment of the patient with behavioral observations of the patient and the patient's response to the treatment. Review of the ongoing treatment process in the context of the treatment plan. Indication of how multi-disciplinary staff members are carrying out the treatment plan. Plans for future interventions and recommendations for revision of the treatment plan. Liaison with other physicians/providers. Progress Note: Dr. De Santiago's notes reviewed. Case and treatment plan discussed in team meeting. Staff reports that the patient stayed in bed all weekend, lights out. He stared at the ceiling. Patient seen at 1:15 PM. He was resting in bed but got up and met with me in office. Reports the weekend was uneventful. States "the days come, the days go." Affect is depressed. Rates sad mood about 6/10 and anxiety about 5/10. We talked at length about the patient's mother and about her dependency. Patient finds it difficult to care for her, as he feels that he, himself, is not very independent. He feels hopeless, helpless, worthless and guilty. Denies suicidal and homicidal ideation. Denies auditory and visual hallucinations and paranoid ideation. Reports sleep is broken and appetite and energy are low. He agrees to increase Cymbalta dose to 90 mg daily. IMPRESSION: Slow progress. Continue present treatment plan. We will now increase Cymbalta dose to 90 mg daily. Continue Zyprexa 5 mg q.h.s. We are looking into placing the patient at [facility].
--- NOTE | 2017-09-01 14:13 | SOCIAL WORKER PROG NOTE PSYCH ---
Social Work Progress Note Progress Note Left another message for Dalia at the [facility]. Called Winsome Roach APRN and left a message. Rashid has spent most of his day in bed. He did have a meeting with spiritual care. He reports that he has a low appetite and low energy. He is still having alot of sleep problems. We had a lengthy conversation about the ability to ask for help and to let someone know he needs support. He is avoiding groups. I told him that he needs to pick some groups tomorrow to go to and that's the goal. He did shower yesterday. Doesn't want to shave his watters, unless he can use an electric razor.
[2017-09-01 15:57] VITALS: BP 107/62
[2017-09-01 19:42] VITALS: BP 115/69
--- NOTE | 2017-09-01 20:07 | CP SOUTH PROGRESS NOTE PSYCH ---
Psych (Inpt) Progress Note Progress Note Include the following elements, when applicable: Involvement in the active treatment of the patient with behavioral observations of the patient and the patient's response to the treatment. Review of the ongoing treatment process in the context of the treatment plan. Indication of how multi-disciplinary staff members are carrying out the treatment plan. Plans for future interventions and recommendations for revision of the treatment plan. Liaison with other physicians/providers. Include the following elements, when applicable: Involvement in the active treatment of the patient with behavioral observations of the patient and the patient's response to the treatment. Review of the ongoing treatment process in the context of the treatment plan. Indication of how multi-disciplinary staff members are carrying out the treatment plan. Plans for future interventions and recommendations for revision of the treatment plan. Liaison with other physicians/providers. Progress Note: Pt reports that he continues to be depressed. DOes not want any med changes. SLeeping very poor with "fractured sleep" but does not want any intervention. Educated pt on sleep hygiene. Denies SI or HI. Current Medications Sig/Calista Start time Last Medication Dose Route Stop Time Status Admin Acetaminophen 650 MG Q6P PRN 08/16 1945 AC PO Al Hydroxide/Mg 30 ML Q4-6 PRN PRN 08/16 1945 AC Hydroxide PO Benztropine Mesylate 1 MG Q6P PRN 08/16 1945 AC PO Benztropine Mesylate 1 MG Q6P PRN 08/16 1945 AC IM Calcium/Vitamin D 500 MG 1/2H B/BREAKF/DINNER 08/17 1630 AC 08/31 PO 0704 Cyanocobalamin 1,000 MCG DAILY 08/17 1000 AC 08/31 PO 0832 Cyclobenzaprine HCl 10 MG Q8P PRN 08/16 1945 AC PO Duloxetine HCl 60 MG DAILY@0800 08/29 0800 AC 08/31 PO 0704 Gabapentin 300 MG Q6P PRN 08/16 2015 AC 08/24 PO 1330 Haloperidol 5 MG Q6P PRN 08/16 1945 AC PO Haloperidol 5 MG Q6P PRN 08/16 1945 AC IM Magnesium Hydroxide 30 ML AT BEDTIME PRN 08/16 1945 AC PO Melatonin 3 MG AT BEDTIME 08/30 2200 AC 08/30 PO 2150 Meloxicam 15 MG DAILY@1800 08/17 1800 AC 08/30 PO 1735 Multivitamins 1 TAB DAILY 08/17 1000 AC 08/31 PO 0832 Olanzapine 5 MG AT BEDTIME 08/26 2200 AC 08/30 PO 2150 Trazodone HCl 150 MG AT BEDTIME 08/19 2199 AC 08/30 PO 2150 Laboratory Tests 08/30 0630 Chemistry Triglycerides (<150 mg/dL) 84 Cholesterol (< 200 MG/DL) 152 LDL Cholesterol, Calc (65 - 129 mg/dL) 87 HDL Cholesterol (40 - 60 mg/dL) 49 Cholesterol/HDL Ratio (0.00 - 4.88 %) 3 Vital Signs Date Time Temp Pulse Resp B/P B/P Pulse O2 O2 Flow FiO2 Mean Ox Delivery Rate 08/31 1218 100 96/63 08/31 0803 97.9 85 113/63 08/30 2027 98.1 91 120/66 08/30 1604 100 114/58 MSE General appearance: fair hygiene and grooming; Attitude: cooperative; Eye contact: appropriate; Movement: + psychomotor slowing; Speech: nl fluency, nl rate/rhythm, nl volume, nl prosody; Mood: "the same, just poorly" Affect: irritable, flat, appropriate, constricted, non-labile, congruent; Thought process: linear and goal-directed; Thought content: denied SI or HI, no paranoid ideation; Perception: denied hallucinations- auditory, visual, does not appear to be responding to internal stimuli; I/J: limited A/P: Pt with MDD admitted with SI with slight improvement in mood but remains very depressed. - Pt does not want any changes though sleeping poorly -Encourage integration into the milieu
[2017-09-02 07:56] VITALS: BP 105/63
[2017-09-02 11:50] VITALS: BP 103/60
--- NOTE | 2017-09-02 14:59 | CP SOUTH PROGRESS NOTE PSYCH ---
Psych (Inpt) Progress Note Progress Note Include the following elements, when applicable: Involvement in the active treatment of the patient with behavioral observations of the patient and the patient's response to the treatment. Review of the ongoing treatment process in the context of the treatment plan. Indication of how multi-disciplinary staff members are carrying out the treatment plan. Plans for future interventions and recommendations for revision of the treatment plan. Liaison with other physicians/providers. Progress Note: Case and treatment plan discussed in team meeting. Staff reports that the patient was up and about on evening shift. He showered and shaved. He said he would be active on Friday (today). Patient seen at 11:41 AM. He was in bed and got up and met with me in the office. Feels a bit sleepy. States his sleep was broken last night. Affect is calm and depressed and he seems to have low energy. Tolerating medications currently. He asked when his discharge will happen. I encouraged him to be up and about more and to attend groups, as that will be the expectation at the [facility]. States he finds it difficult to engage. Rates sad mood 6/10 and anxiety 5/10. Feels hopeless, helpless, worthless and guilty. Denies suicidal and homicidal ideation. Denies auditory and visual hallucinations and paranoid ideation. Reports appetite is low and energy is still low. IMPRESSION: Slow progress. Continue present treatment plan. I discussed with patient the 12-step saying "move a muscle, change a thought." Patient was advised that making some positive behavioral changes may lead to an improvement in mood. We await more information from [facility].
[2017-09-02 15:48] VITALS: BP 115/70
--- NOTE | 2017-09-02 17:15 | SOCIAL WORKER PROG NOTE PSYCH ---
Social Work Progress Note Progress Note Left a message this morning for Dalia Murrieta [phone] at the [facility] regarding the consult put in by Winsome Roach APRN. I also called Winsome and left a message. She returned the call and left a message that someone should have reached out to me about [facility] as the referral was put in last week. I called her back and left a message asking for her help with identifying a contact of who to speak with regarding the referral. Rashid was prompted this morning to get out of bed and go to group. I later saw him during the early evening hours and he shared he did not go to groups. He is complaining about his energy and motivation. He did say "tomorrow is a new day and I'll start fresh." He remains ambivalent about [facility]. He stated "I'm not doing that well here, I don't know if I'll be able to do it." I told him that Brandee and Edilberto are not going to allow him to return to the house without structure and tx and so he really needs to start making an effort to integrate himself into the world.
[2017-09-02 21:35] VITALS: BP 108/65
[2017-09-03 07:58] VITALS: BP 116/68
--- NOTE | 2017-09-03 11:48 | SOCIAL WORKER PROG NOTE PSYCH ---
Social Work Progress Note Progress Note Left voice mail for Winsome Roach APRN at [facility] [phone] ext [phone] to gather informations on contacts for [facility].
[2017-09-03 12:26] VITALS: BP 99/56
--- NOTE | 2017-09-03 13:46 | CP SOUTH PROGRESS NOTE PSYCH ---
Psych (Inpt) Progress Note Progress Note Include the following elements, when applicable: Involvement in the active treatment of the patient with behavioral observations of the patient and the patient's response to the treatment. Review of the ongoing treatment process in the context of the treatment plan. Indication of how multi-disciplinary staff members are carrying out the treatment plan. Plans for future interventions and recommendations for revision of the treatment plan. Liaison with other physicians/providers. Progress Note: Case and treatment plan discussed in team meeting. Staff reports that the patient virtually did nothing yesterday. Described as non-functional. Patient seen at 10:07 AM. He was resting in bed but got up to me with me in office. Reports his sleep was fair, marginally better. Affect is calm and depressed. Reports there is no change in mood, describing it as "flat" and "fair." Rates sad mood 6/10. Rates anxiety still a 5/10, unchanged. Feels hopeless, helpless, worthless and guilty. Denies suicidal and homicidal ideation. Denies auditory and visual hallucinations and paranoid ideation. Reports appetite is low. Reports his energy is still on the low side. I inquired about Wellbutrin. He has had it in the past without ill effect. No history of seizures. No history of anorexia or bulimia nervosa. States he is not ready to add Wellbutrin. IMPRESSION: Slow progress. Continue present treatment plan. 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 Showing little motivation. We are awaiting information on the [facility] program.
--- NOTE | 2017-09-03 13:53 | SOCIAL WORKER PROG NOTE PSYCH ---
Social Work Progress Note Progress Note Pot Room Tapper checked-in with Rashid today. He reported to be feeling and experiencing much of the same since he and this leader writer last spoke-fair mood, trouble sleeping , and difficulty processing and comprehending thoughts. Pot Room Tapper and he spoke about the possibility of Rashid going to [facility]. Rashid reported to be worried about how he would get to the program and about whether he would need transportation while he was enrolled in the program. Pot Room Tapper assured him that transportation would not be an issue and that the [facility]ol[facility]ology Surgeon [facility]. Additionally, leader writer told Rashid that the [facility] would provide any transportation needed while he was enrolled in the program. Rashid also spoke about his reticence to try new medications as suggested by the doctor. Pot Room Tapper encouraged Rashid to speak with Dr. Bowen about this, but did say that this is an ideal environment for adjusting and trying out new medications as the medications can be easily tapered or stopped if he were to experience side effects. Pot Room Tapper again encouraged Rashid to try to go to a group today. Rashid agreed to try and said he would to ask about the activity for this afternoon's 3PM activity group.
[2017-09-03 16:06] VITALS: BP 106/56
[2017-09-03 19:28] VITALS: BP 94/60
[2017-09-04 07:53] VITALS: BP 102/64
--- NOTE | 2017-09-04 10:34 | SOCIAL WORKER PROG NOTE PSYCH ---
Social Work Progress Note Progress Note Called Chrissie Garcia at the [facility] and got the contact info for Dr. Emerson at [facility]. His contact is [phone] ext. [phone]. Left him a voicemail. Rashid was in group this morning, but was taken out to meet with Dr. Bowen and this mortgage or loan underwriter. Praised his efforts in getting to group. He describes himself as "fair". He stated he isn't sure what is going to happen from here. He feels confused. I assured him I was helping to find out more information and to contact the Director there. He doesn't know what he should be doing. We talked about the importance of going to a program as a step down from inpatient so he can have structure and support. Dr. Bowen asked him to consider adding Wellbutrin or a stimulant. Rashid refused today. Doesn't like the idea of being on medications. We talked about how his brain needs a medication to help make the connections it is currently not making. He was encouraged to think about it. No AH/VH today, rates sad at a 6 (1-10, 10 being severe), anxiety a 5 (on the same scale). Denies SI/HI. Appetite and energy remain low. Has complaints of spaciness and a heaviness in his head. Encouraged to continue with groups today. Spoke with Dr. Emerson from the [facility]. He talked about the structure of the program. He mentioned that the guys really have to be pretty independent. If he is not going to get up and follow the structure or go to groups this won't work out for him. There is a nurse on site, but it sounds like there isn't alot of prompting in terms of getting up and to day program. Programming starts around 7:30a. There is a shuttle that picks them up and takes them to day program. They return to the program at 1pm and then attend a few groups there. Meds can be administered if needed. They have to also be able to come down for meals on their own. Dr. Jordan would like to talk to Rashid and I on Friday to answer any questions he may have. He said he will tentatively hold a bed for him for next , if all is well and he is appropriate to come.
[2017-09-04 12:05] VITALS: BP 104/59
--- NOTE | 2017-09-04 13:17 | CP SOUTH PROGRESS NOTE PSYCH ---
Psych (Inpt) Progress Note Progress Note Include the following elements, when applicable: Involvement in the active treatment of the patient with behavioral observations of the patient and the patient's response to the treatment. Review of the ongoing treatment process in the context of the treatment plan. Indication of how multi-disciplinary staff members are carrying out the treatment plan. Plans for future interventions and recommendations for revision of the treatment plan. Liaison with other physicians/providers. Progress Note: Case and treatment plan discussed in team meeting. Patient seen with Carolin Leon LCSW 10:40 AM. Patient was in group prior to meeting with us. Feels fair but states he is not certain what will happen from here. Reports he is confused. Affect is calm and depressed. Refuses recommendation for addition of an antidepressant or a stimulant. He dislikes medicine and states that he feels spacey. Appears awake and alert and not sedated but does have low motivation. Rates sad mood about 6/10 and anxiety about 5/10. Denies suicidal and homicidal ideation. Denies auditory and visual hallucinations and paranoid ideation. Reports sleep has been broken and he had difficulty falling asleep and middle of night awakening. Reports appetite and energy are still kind of low. I asked about side effects from current medications. He states that his head is spacey and he does not know what to do. In the past, I offered saline nasal spray for possible sinus congestion and he refused offer again today. IMPRESSION: Slow progress. Continue present treatment plan. textile worker has contact information for [facility] and we will look into that. Continue Cymbalta and Zyprexa as written. Patient refuses recommendation for addition of an antidepressant or a stimulant. Remains profoundly depressed.
[2017-09-04 16:32] VITALS: BP 101/66
[2017-09-04 19:51] VITALS: BP 107/55
[2017-09-05 08:23] VITALS: BP 99/69
[2017-09-05 12:03] VITALS: BP 104/63
--- NOTE | 2017-09-05 13:12 | CP SOUTH PROGRESS NOTE PSYCH ---
Psych (Inpt) Progress Note Progress Note Include the following elements, when applicable: Involvement in the active treatment of the patient with behavioral observations of the patient and the patient's response to the treatment. Review of the ongoing treatment process in the context of the treatment plan. Indication of how multi-disciplinary staff members are carrying out the treatment plan. Plans for future interventions and recommendations for revision of the treatment plan. Liaison with other physicians/providers. Progress Note: Case and treatment plan discussed in team meeting. Staff reports that the patient attended 2 groups yesterday. We learned that patients at [facility] need to be somewhat independent. Patient will have a phone call with Dr. mEerson of [facility] on Friday. A bed may be available there on . Patient seen at 11:46 AM. Reports he is still a little aggravated by the broken sleep. Plans to go to groups this afternoon. States that he attended 3 groups yesterday. Affect is calm and depressed. Does not want a stimulant or an antidepressant added. Rates sad mood 6/10 and anxiety 5/10. Feels hopeless, helpless, worthless and guilty. Denies suicidal and homicidal ideation. Denies auditory and visual hallucinations and paranoid ideation. Reports appetite is still low. Energy is still low. Tolerating medications but has occasional dizziness when he gets up. I advised him to get up slowly and to push fluids. IMPRESSION: Slow progress. Continue present treatment plan. Continue Cymbalta and Zyprexa as ordered. Hopefully patient will be accepted to [facility] for next .
--- NOTE | 2017-09-05 15:30 | SOCIAL WORKER PROG NOTE PSYCH ---
Social Work Progress Note Progress Note Called Roger Mike's Brother. Updated him on Rashid's current presentation and info about [facility]. Encouraged him to talk with Rashid if possible about working towards getting into the program. He said he would see Rashid this weekend. Also discussed his resistance towards trying new medications. Spoke with Rashid. He immediately told me he attempted group this afternoon, but there was a very disruptive peer and he couldn't deal with this person's behaviors and so he left. I let Rashid know that I spoke with his Brother and updated him. We talked about the reason he is resistant to trying new meds. He stated it was the amount of medication. He feels that he should be able to take 1 or 2 pills and that should be all. He is concerned with the side effects of two many pills interacting. I explained that different pills target different areas of the brain. I also stated that if he is concerned about side effects the hospital is the best place to try it out. After futher discussion, Rashid stated he would reconsider the medication recommendations. I reflected that I saw more progress today than I had. He is responding quicker and verbalizing more. He said he doesn't notice that much of a difference. We talked about our phone call with Dr. Emerson from [facility] that we are planning for Friday. I asked Rashid if he had thought of any questions to ask? He said he was thinking of just asking to walk him through a typical day there. I told him that seemed like a great question and to continue to think about that over the weekend. Rashid stated that he feels like he is a ship without an anchor and he just feels lost. We talked about the loss of his employment contributing to that. Again reiterated that he is healing and that depression is a significant medical condition like healing from a heart attack or surgery all takes time and work.
[2017-09-05 16:13] VITALS: BP 103/60
[2017-09-05 19:56] VITALS: BP 102/63
[2017-09-06 08:04] VITALS: BP 99/59
--- NOTE | 2017-09-06 09:07 | CP SOUTH PROGRESS NOTE PSYCH ---
Psych (Inpt) Progress Note Progress Note Include the following elements, when applicable: Involvement in the active treatment of the patient with behavioral observations of the patient and the patient's response to the treatment. Review of the ongoing treatment process in the context of the treatment plan. Indication of how multi-disciplinary staff members are carrying out the treatment plan. Plans for future interventions and recommendations for revision of the treatment plan. Liaison with other physicians/providers. Progress Note: SUBJECTIVE: Patient reports broken sleep due to noises on the unit, broken sleep due to noises on the unit takes a while to fall back to sleep. Patient does not want an increase in trazodone at this time. Eating "okay." No SI/HI/AVH/SIB. No side effects to medications. No abnormal movements reported. Reports lower back pain that is being managed by meloxicam. Discussed plan to return to outpatient treatment at [facility] upon discharge. OBJECTIVE: Per nursing, pt slept well overnight without any acute events. Pt remained in behavioral control, adherent with staff instructions and medications. VSS but at BP low end of range. Current Medications Sig/Calista Start time Last Medication Dose Route Stop Time Status Admin Acetaminophen 650 MG Q6P PRN 08/16 1945 AC PO Al Hydroxide/Mg 30 ML Q4-6 PRN PRN 08/16 1945 AC Hydroxide PO Benztropine Mesylate 1 MG Q6P PRN 08/16 1945 AC PO Benztropine Mesylate 1 MG Q6P PRN 08/16 1945 AC IM Calcium/Vitamin D 500 MG 0800,1700 09/05 1700 AC 09/06 PO 0806 Cyanocobalamin 1,000 MCG DAILY 08/17 1000 AC 09/06 PO 0806 Cyclobenzaprine HCl 10 MG Q8P PRN 08/16 1945 AC PO Duloxetine HCl 90 MG DAILY@0800 09/02 0800 AC 09/06 PO 0806 Gabapentin 300 MG Q6P PRN 08/16 2015 AC 08/24 PO 1330 Haloperidol 5 MG Q6P PRN 08/16 1945 AC PO Haloperidol 5 MG Q6P PRN 08/16 1945 AC IM Magnesium Hydroxide 30 ML AT BEDTIME PRN 08/16 1945 AC PO Melatonin 3 MG AT BEDTIME 08/30 2200 AC 09/05 PO 220 Meloxicam 15 MG DAILY@1800 08/17 1800 AC 09/05 PO 1733 Multivitamins 1 TAB DAILY 08/17 1000 AC 09/06 PO 0806 Olanzapine 5 MG AT BEDTIME 08/26 2199 AC 09/05 PO 220 Trazodone HCl 150 MG AT BEDTIME 08/19 2199 AC 09/05 PO 220 Vital Signs Date Time Temp Pulse Resp B/P B/P Pulse O2 O2 Flow FiO2 Mean Ox Delivery Rate 09/06 0804 97.2 83 99/59 09/05 1956 98.1 93 102/63 09/05 1613 93 103/60 09/05 1203 80 104/63 MSE: GENERAL: Alert and oriented x3, fair eye contact, well-groomed, no apparent distress SPEECH: solt and low, normal prosody, fluent MOTOR: No tics, tremors, stereotypy, or abnormal movements MOOD: "ok i guess" AFFECT: down, mood congruent, mildly constricted range, non-labile, fairly well related THOUGHT PROCESS: Logical, linear and goal-directed THOUGHT CONTENT: No SI/SI/AVH/SIB, no apparent grandiosity, paranoia, delusions , obsessions, ruminations COGNITION: No apparent deficit in attention, memory or concentration JUDGMENT: fair INSIGHT: fair ASSESSMENT: 51 yo DWDalila admitted on 08/16/17 on a voluntary basis, referred by [facility]. Hx recurrent major depression and suicide attempt 20 years ago when he jumped off a 30' high bridge while serving in the in [place], recent stressors include father's last year, unemployment, inability to help his mother. Today, pt appears low, but states he is doing all right, without side effects to medications, continue plan. PLAN: -maintain safety, vs tid, q15min checks -continue meds, tolerating Cymbalta and Zyprexa -[facility] -continue plan
[2017-09-06 12:15] VITALS: BP 97/63
[2017-09-06 15:50] VITALS: BP 101/64
[2017-09-06 19:57] VITALS: BP 97/55
--- NOTE | 2017-09-07 02:15 | CP SOUTH PROGRESS NOTE PSYCH ---
Psych (Inpt) Progress Note Progress Note Include the following elements, when applicable: Involvement in the active treatment of the patient with behavioral observations of the patient and the patient's response to the treatment. Review of the ongoing treatment process in the context of the treatment plan. Indication of how multi-disciplinary staff members are carrying out the treatment plan. Plans for future interventions and recommendations for revision of the treatment plan. Liaison with other physicians/providers. Progress Note: SUBJECTIVE: Patient resting in room, feeling "about the same." Patient somewhat isolative today. Reports broken sleep last night. Had visit with brother yesterday, which he enjoyed. Patient feeling mild passive SI chronically , denies HI/AVH/SIB. No side effects to medications. No abnormal movements reported. Discussed his time in the [employer]. [facility] and [facility] have [facility] call next week with [facility] to hear more about their program. No other physical complaints or illness. OBJECTIVE: Per nursing, pt slept well overnight without any acute events. Pt remained in behavioral control, adherent with staff instructions and medications. VSS. Current Medications Sig/Calista Start time Last Medication Dose Route Stop Time Status Admin Acetaminophen 650 MG Q6P PRN 08/16 1945 AC PO Al Hydroxide/Mg 30 ML Q4-6 PRN PRN 08/16 1945 AC Hydroxide PO Benztropine Mesylate 1 MG Q6P PRN 08/16 1945 AC PO Benztropine Mesylate 1 MG Q6P PRN 08/16 1945 AC IM Calcium/Vitamin D 500 MG 0800,1700 09/05 1700 AC 09/07 PO 0835 Cyanocobalamin 1,000 MCG DAILY 08/17 1000 AC 09/07 PO 0835 Cyclobenzaprine HCl 10 MG Q8P PRN 08/16 1945 AC PO Duloxetine HCl 90 MG DAILY@0800 09/02 0800 AC 09/07 PO 0835 Gabapentin 300 MG Q6P PRN 08/16 2015 AC 08/24 PO 1330 Haloperidol 5 MG Q6P PRN 08/16 1945 AC PO Haloperidol 5 MG Q6P PRN 08/16 1945 AC IM Magnesium Hydroxide 30 ML AT BEDTIME PRN 08/16 1945 AC PO Melatonin 3 MG AT BEDTIME 08/30 2200 AC 09/06 PO 220 Meloxicam 15 MG DAILY@1800 08/17 1800 AC 09/06 PO 1816 Multivitamins 1 TAB DAILY 08/17 1000 AC 09/07 PO 0835 Olanzapine 5 MG AT BEDTIME 08/26 2199 AC 09/06 PO 2200 Trazodone HCl 150 MG AT BEDTIME 08/19 2199 AC 09/06 PO 2159 Vital Signs Date Time Temp Pulse Resp B/P B/P Pulse O2 O2 Flow FiO2 Mean Ox Delivery Rate 09/07 1157 100 116/60 09/07 0817 96.8 88 115/64 09/06 1957 98.1 88 97/55 09/06 1550 96 101/64 MSE: GENERAL: Alert and oriented x3, fair eye contact, well-groomed, no apparent distress, resting in room SPEECH: solt and low, normal prosody, fluent MOTOR: No tics, tremors, stereotypy, or abnormal movements MOOD: "About the same as yesterday" AFFECT: down, mood congruent, constricted range, non-labile, fairly well related THOUGHT PROCESS: Logical, linear and goal-directed THOUGHT CONTENT: Mild passive SI, no HI/AVH/SIB, no apparent grandiosity, paranoia, delusions, obsessions, ruminations COGNITION: No apparent deficit in attention, memory or concentration JUDGMENT: fair INSIGHT: fair ASSESSMENT: 51 yo DWM admitted on 08/16/17 on a voluntary basis, referred by [facility]. Hx recurrent major depression and suicide attempt 20 years ago when he jumped off a 30' high bridge while serving in the in [place]. R ecent stressors include father's last year, unemployment, inability to help his mother. Today, pt continues to appear depressed and isolative. PLAN: -maintain safety, vs tid, q15min checks -continue meds, tolerating Cymbalta and Zyprexa -[facility] -sleep hygiene discussed, OOB encouraged -continue plan
[2017-09-07 08:17] VITALS: BP 115/64
[2017-09-07 11:57] VITALS: BP 116/60
[2017-09-07 15:54] VITALS: BP 100/56
[2017-09-07 18:57] VITALS: BP 119/63
[2017-09-08 07:45] VITALS: BP 106/68
--- NOTE | 2017-09-08 11:59 | SOCIAL WORKER PROG NOTE PSYCH ---
Social Work Progress Note Progress Note Prompted Rashid to go to group this morning and informed him that we would make the call to Dr. Emerson after group. Reinforced the idea that he needs to be going to group and that is the expectation. He did go to group. Reports that he is having some trouble staying awake in group. He said his Brother Roger visited on Friday and he did talk to Mr. and Mrs. Dawkins about how he is doing. He is going to call Mr. and Mrs. Dawkins back again later today to discuss his discharge plan. We called Dr. Emerson together at the [facility]. Dr. Jordan talked to Rashid about the program and explained some of the logistics. Rashid asked a couple of questions and thanked him for his time. Dr. Jordan said he will wait to hear from us on whether or not Rashid accepts the decision to go there. Rashid and I spoke afterwards for a few minutes. I asked him what he thought? He stated that it sounded similar to things here. He would like to talk to Mr. and Mrs. Dawkins about the plan. Rashid is preoccupied with the idea that he needs to look for work. I did tell him he should be discharging this week with a plan to [facility] or possibly back to the home in [place] if Mr. and Mrs. Dawkins allow him to return.
[2017-09-08 12:02] VITALS: BP 108/73
--- NOTE | 2017-09-08 14:50 | CP SOUTH PROGRESS NOTE PSYCH ---
Psych (Inpt) Progress Note Progress Note Include the following elements, when applicable: Involvement in the active treatment of the patient with behavioral observations of the patient and the patient's response to the treatment. Review of the ongoing treatment process in the context of the treatment plan. Indication of how multi-disciplinary staff members are carrying out the treatment plan. Plans for future interventions and recommendations for revision of the treatment plan. Liaison with other physicians/providers. Progress Note: Dr. Ai Wheeler's notes reviewed. Case and treatment plan discussed in team meeting. Staff reports that the patient spent all weekend in his room. Staff reports patient cracked a couple of jokes. Not attending groups. Isolative. Patient did attend group this morning. Patient seen at 11:50 AM. Reports there is nothing different from Friday except that his brother, Roger, visited on Friday. States that the visit went all right, he supposes. I advised the patient to attend all groups. He complains of sedation. Appears awake and alert. Reports he had a phone call with Dr. [facility] of [facility] at the [place]. Patient reports that his bed is being held for him at [facility]. Patient is apprehensive about going to [facility]. States bed will be available there on . Patient is refusing medication changes. Rates sad mood still at 5/10 and anxiety at 5/ 10. Feels hopeless, helpless, worthless and guilty. Denies suicidal and homicidal ideation. Denies auditory and visual hallucinations and paranoid ideation. Reports he often has middle of the night awakenings. Appetite is still on the low side. Energy is low. IMPRESSION: Slow progress. Continue present treatment plan. Anticipate possible discharge on to [facility]. Patient is refusing medication changes at this time. He is denying suicidal ideation. Remains depressed.
[2017-09-08 16:05] VITALS: BP 105/59
[2017-09-08 19:44] VITALS: BP 106/59
[2017-09-09 08:03] VITALS: BP 107/71
--- NOTE | 2017-09-09 11:38 | SOCIAL WORKER PROG NOTE PSYCH ---
Social Work Progress Note Progress Note Rashid told me he tried to call Mr. and Mrs. and Mariza last night but couldn't get a hold of them. Encouraged him to reach out again after group. He did go to the 10am group and then immediately got on the phone. He was able to speak with Brandee Dawkins. After his conversation we met to discuss the details. He said he feels like people are not understanding what he is trying to say about paying his bills. He is afraid of missing a payment on a bill. I asked what was discussed in terms of returning to the [facility] vs. [facility]? He stated that he feels like everyone is recommending [facility]. He remains worried about needing to find work. I told him that his priority is his health and that everything else can wait. He reluctantly agreed that he would go to [facility]. I told him I would get back to Dr. Jordan and I would also speak with [facility]. Called Dr. Emerson and left a message. Spoke with Brandee Dawkins who reported that Rashid definetely sounded better over the phone. She reported she was able to have a conversation with him, which was progress. There is less of a delay in his responses. She is hoping Rashid can succeed at [facility]. She has been telling him the same things that we are, in terms of prioritizing his health over finding a job. She is happy to help him try and pay his bill that he was worried about. I told her that Rashid will most likely discharge , but I will keep her updated. Spoke with Dr. Emerson from [facility]. Talked about admission for Rashid on . He would like me to reach out to Marcial Dhillon at the [place] [phone] ext [phone] to see if we can set up transportation of . D/C clinical info should be faxed to [phone]. He will be going to [facility] 08[facility] on [address] [place].
[2017-09-09 12:26] VITALS: BP 98/60
[2017-09-09 15:49] VITALS: BP 113/64
--- NOTE | 2017-09-09 16:01 | CP SOUTH PROGRESS NOTE PSYCH ---
Psych (Inpt) Progress Note Progress Note Include the following elements, when applicable: Involvement in the active treatment of the patient with behavioral observations of the patient and the patient's response to the treatment. Review of the ongoing treatment process in the context of the treatment plan. Indication of how multi-disciplinary staff members are carrying out the treatment plan. Plans for future interventions and recommendations for revision of the treatment plan. Liaison with other physicians/providers. Progress Note: Case discussed with nurse. Patient went to a couple of groups today. Displaying poor eye contact with nurse. Patient seen at 2:03 PM with medical student. Patient was in his room prior to meeting with us in office. Reports mood is "still kind of flat, but we're here. " He is missing an activity group now but plans to go to spirituality group later in the afternoon. Reports having financial concerns if he goes to [facility]. Reports his brother, Roger, gave him the book "The Power of Positive Thinking" by Marlon Raines, and the patient reports reading it. Rates sad mood 5/10. Reports having anxiety, stating he is apprehensive, and rates it 5/10. Feels hopeless and somewhat helpless. Denies feeling worthless. Feels guilty. Denies active and passive suicidal ideation. Denies homicidal ideation. Denies auditory and visual hallucinations and paranoid ideation. Reports broken sleep and indicates he has had this problem for 3 months. Appetite is still fairly low. Energy is low to medium. Patient's left eye is noted to have some injection of vessels on the left lateral bulbar sclera or conjunctiva. We should monitor for possible conjunctivitis. Patient does not want any psychiatric medication changes, for example addition of Wellbutrin, a stimulant or lithium. IMPRESSION: Slow progress. Seems to have a just noticeable difference improvement. Continue present treatment plan. Anticipate likely discharge on to go to [facility].
[2017-09-09 19:43] VITALS: BP 101/65
[2017-09-10 08:05] VITALS: BP 114/66
--- NOTE | 2017-09-10 11:14 | SOCIAL WORKER PROG NOTE PSYCH ---
Social Work Progress Note Progress Note Rashid and I discussed his discharge for tomorrow. He is nervous due to not knowing what to expect. Talked again about the focus being on healing and the care home goal being getting back into work. 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 He stated "that's fair enough." I informed him that I was trying to arrange transportation through the [place] and as soon as I knew what the timeframe was tomorrow I would let him know. Encouraged him to attend groups today. Transportation was arranged through the [facility] for an 11am p/u. Called Dr. Emerson and informed him of the time of his discharge. Informed Rashid as well. Called Rashid's Brother Roger and left a message about his d/c plan. Updated and Mrs. Dawkins and gave them Dr. Emerson's contact info.
--- NOTE | 2017-09-10 11:30 | SOCIAL WORKER PROG NOTE PSYCH ---
Social Work Progress Note Progress Note Artistic Associate spoke with Chrissie Avendaño at the [place] to set up transportation to the [facility] tomorrow (09/11/17). Arrangements were made for a cab to pick Rashid up on the corner of [address] and [address] [facility]. The cab will be here for 11am and will call the nurses' station when they arrive.
[2017-09-10 12:43] VITALS: BP 96/66
--- NOTE | 2017-09-10 14:06 | CP SOUTH PROGRESS NOTE PSYCH ---
Psych (Inpt) Progress Note Progress Note Include the following elements, when applicable: Involvement in the active treatment of the patient with behavioral observations of the patient and the patient's response to the treatment. Review of the ongoing treatment process in the context of the treatment plan. Indication of how multi-disciplinary staff members are carrying out the treatment plan. Plans for future interventions and recommendations for revision of the treatment plan. Liaison with other physicians/providers. Progress Note: Case discussed with nursing staff. Patient seen at 1:13 PM. He was resting in bed but got up to me with me in office. Affect is calm and depressed. Feels all right. States he had a little lunch and decided to rest. Mood is a bit low. Reports that [facility] his [facility]. He is worried about whether his possessions will get from here to the [facility]. He was pleased to meet with chaplain Brock. Patient is finding The Power of Positive Thinking helpful. Rates sad mood 5/10. Reports anxiety is still 5/10 because he does not know what to expect and what expectations will be placed on him. Feels somewhat hopeless. Feels helpless, never thinking in 20 years he would be facing such a predicament as he is in. States he does not feel completely worthless. Does feel guilty. Denies active and passive suicidal ideation. Denies homicidal ideation. Denies auditory and visual hallucinations and paranoid ideation. Reports sleep is broken. Appetite is fair, a little bit better today. Energy is low to medium. States he is still dealing with lower back pain, which he attributes to a leg length discrepancy. Reports his left leg is longer than his right in the context of injuries from his jumping off a bridge. 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 Patient is not worried about his safety after discharge but he states he is not sure about his ability to function. Reports tolerating medications well except he feels sleepy a lot. He currently appears awake and alert. IMPRESSION: Slow progress. Continue present treatment plan. Anticipate discharge tomorrow at 11 AM to go to the [place] [facility].
[2017-09-10 15:58] VITALS: BP 94/63
[2017-09-10 19:56] VITALS: BP 104/54
[2017-09-11 08:02] VITALS: BP 111/68
[2017-09-11] MEDS ORDERED: TRAZODONE HCL150 M1 PO (10:32)
[2017-09-11] MEDS ORDERED: CYMBALTA30 M1 PO (10:32)
[2017-09-11] MEDS ORDERED: OLANZAPINE5 M2 PO (10:32)
[2017-09-11] MEDS ORDERED: MELATONIN3 M4 PO (10:32)
--- NOTE | 2017-09-11 10:37 | SOCIAL WORKER PROG NOTE PSYCH ---
Social Work Progress Note Progress Note Confirmed [facility] Rashid was sitting by the fishtank around 10am. He was wearing his glasses and looked ready to leave. We met together with Dr. Bowen. He stated that he thinks he is ready to go today. Nervous about what to expect when he gets there. Let him know he will be seeing someone to get his meds when he gets there. He feels a little unsettled today, just not knowing all the facts. Encouraged positive thoughts and for him to keep ready his book. He stated that he is reading the book his Brother gave him on Positive thinking, but he doesn't feel he is retaining the information. Continues to report "broken" sleep, stating he is waking a few times a night. Denies SI/HI, feels a "little bit" hopeless, denies feeling worthless. Feels guilty about parts of his life. Rates anxiety at a 5 1-10, 10 being most severe, and sadness a 5 on the same scale. Informed Rashid that I will be speaking with his Brother and updated him on the discharge information. Called Roger Kingston and gave him the address for [facility] and Dr. Jordan's info. Talked about Rashid's progress here and how the team feels he has achieved maximum hospital benefit at this point. Mr. Kingston was pleased that Rashid was going to [facility] and looked forward to working with the program there. Rashid left at 11am.
--- NOTE | 2017-09-11 10:49 | Patient Discharge Instructions ---
Psych Discharge Inst General Discharge Information Reason for Admission: Depression. Ruminations. Had difficulty concentrating at [employer] [facility]. Was having trouble functioning. Was rocking and had delayed responses. Was isolative, appeared flat in affect and was anhedonic. Reportedly thought he should have succeeded in killing himself 20 years ago. Psy Discharge Primary Diag+ Major depr rec severe Psy Discharge Secondary Diag+ R/o old TBI Hx low vitamin B12 level Hx fx's L elbox, L hip Hx splenectomy Hx skull fracture Hx DJD/chr. low back pain Hx migraines Hx GERD Summary Tests/Major Procedures Lab Cholesterol 152 MG/DL 08/30/17 0630 Cholesterol/HDL Ratio 3 % 08/30/17 0630 HDL Cholesterol 49 mg/dL 08/30/17 0630 Hemoglobin A1c 5.8 % 08/17/17 0655 LDL Cholesterol, Calc 87 mg/dL 08/30/17 0630 Triglycerides 84 mg/dL 08/30/17 0630 Other labs done 08/15/17 at [facility]. 1+ protein in urine, platelets 384 H. EKG 08/17/17 showed sinus rhythm @ 77, no previous tracing, "otherwise normal ecg." QT 396, QTc 449. Studies Pending at DC: None. Patient Instructions Contact Information Your Psychiatrist on [facility] was Dwayne Bowen MD * If you are experiencing an emergency related to this hospitalization, please call [phone] to contact the treating psychiatrist or the psychiatrist-on- call. * To Request a copy of your medical records, please contact the Medical Records Department at [phone]. * To request results of studies pending at the time of discharge, please call [phone]. * Continue your Medications until directed to stop by your Healthcare provider. General Medication Information Please continue to take your new medications and your continued home medications , unless otherwise indicated on your discharge medication list, or unless directed by your MD or [facility] DISPENSER to stop them. Special Instructions Diet Regular Activity Normal Other Inst/Recommendations See PCP for medical conditions listed above. Pls get up slowly/push fluids. - Tobacco Use Treatment Offered Post DC Medications Offered: Not Applicable Post DC Tobacco Treatment Plan: Not Applicable - EtOH/Drug Use D/O Treatment Offered Post DC Medications Offered: NA-No EtOH/Drug Use D/O Post DC EtOH/SubAbuse [place] Plan: NA-No EtOH/Drug Use D/O Metabolic Screening () Not Applicable, patient not on a neuroleptic. OR () Patient on a neuroleptic(s) . Enter below results for Hemoglobin A1C, and lipid panel if obtained during the last 365 days. BMI: 24.000 Blood Pressure: 111/68 Laboratory Results From [facility] (If applicable): [x] Lab Cholesterol 152 MG/DL 08/30/17 0630 Cholesterol/HDL Ratio 3 % 08/30/17 0630 HDL Cholesterol 49 mg/dL 08/30/17 0630 Hemoglobin A1c 5.8 % 08/17/17 0655 LDL Cholesterol, Calc 87 mg/dL 08/30/17 0630 Triglycerides 84 mg/dL 08/30/17 0630 Advance Directives Does the Patient have Medical Advance Directives No/Per pt req info given Does Pt have Psychiatric Advance Directives? No/Refused further info Does Patient have a Designated Surrogate Decision Maker: No Information About Psychiatric Advance Directives Provided? Refused Discharge Plan Post Hospital [facility] Winsome Roach APRN at [facility]. Plan is to return [facility] for housing.
--- NOTE | 2017-09-11 11:21 | SOCIAL WORKER PROG NOTE PSYCH ---
Social Work Progress Note Faxed Referral(s) Referred To: [facility] Documents sent: Health Summary Faxed to: [facility] Fax #: [phone] Faxed by: Carolin Leon Date faxed: 09/11/17 Time Faxed: [phone]
--- NOTE | 2017-09-11 14:12 | CP SOUTH PROGRESS NOTE PSYCH ---
Psych (Inpt) Progress Note Progress Note Include the following elements, when applicable: Involvement in the active treatment of the patient with behavioral observations of the patient and the patient's response to the treatment. Review of the ongoing treatment process in the context of the treatment plan. Indication of how multi-disciplinary staff members are carrying out the treatment plan. Plans for future interventions and recommendations for revision of the treatment plan. Liaison with other physicians/providers. Progress Note: Case and treatment plan discussed in team meeting. Staff reports that the patient is denying suicidal ideation. He is prepared to leave and is calm about leaving. Patient seen at 10:06 AM with Carolin Leon LCSW. Patient appears awake and alert. States he is not sure what to expect when he arrives at [facility]. Affect is calm and blunted. Reports having limited retention for what he reads in a book. Reports sleep was broken by middle of the night awakenings. Describes mood as not agitated but a bit anxious, just feeling unsettled going into the unknown. Rates sad mood 5/10 and anxiety still a 5/10. Feels hopeless still a little bit. Feels helpless somewhat, he guesses. Denies feeling worthless. Feels guilty about parts of his life. Denies active and passive suicidal ideation. Denies homicidal ideation. Denies auditory and visual hallucinations and paranoid ideation. Reports appetite is low but on the cusp of picking up a little. Energy is low to medium. [place] dizzy yesterday for the third time here. I advised him to push fluids and to get up slowly. Feels ready and safe for discharge. IMPRESSION: Condition improved. Okay for discharge today to go to the [place].
--- NOTE | 2017-09-11 14:41 | DISCHARGE SUMMARY REPORT-PSYCH ---
Visit Information Visit Dates/Diagnosis' Admission Date: 08/16/17 Discharge Date: 09/11/17 Reason for Admission: Depression. Ruminations. [facility] difficulty concentrating at [facility]. Was having trouble functioning. Was rocking and had delayed responses. Was isolative, appeared flat in affect and was anhedonic. Reportedly thought he should have succeeded in killing himself 20 years ago. Psy Discharge Primary Diag: Major depr rec severe Psy Discharge Secondary Diag: R/o old TBI Hx low vitamin B12 level Hx fx's L elbox, L hip Hx splenectomy Hx skull fracture Hx DJD/chr. low back pain Hx migraines Hx GERD Hospital Course Significant Lab Findings: Lab Cholesterol 152 MG/DL 08/30/17 0630 Cholesterol/HDL Ratio 3 % 08/30/17 0630 HDL Cholesterol 49 mg/dL 08/30/17 0630 Hemoglobin A1c 5.8 % 08/17/17 0655 LDL Cholesterol, Calc 87 mg/dL 08/30/17 0630 Triglycerides 84 mg/dL 08/30/17 0630 Other labs done 08/15/17 at [facility]. 1+ protein in urine, platelets 384 H. EKG 08/17/17 showed sinus rhythm @ 77, no previous tracing, "otherwise normal ecg." QT 396, QTc 449. Course Complications: None. Consultations: Patient was seen for admission H&P by Dr. Mark Victoria, who noted: "Assessment: 51 yo M a [facility] with h/o MDD, migraine, GERD, multitrauma after suicide attempt (1996) resulting in splenectomy, skull, rib and hip fractures, chronic back pain [facility] and [facility] ideation. - Continue management per Psych team. - Home medications reviewed and continued. - DVT ppx low risk, early ambulation." Allergies: Coded Allergies: morphine (UNKNOWN 08/16/17) Hospital Course/TX Response: The patient was monitored on the unit for safety and mood disorder. He tended to isolate in his room, but toward the end of his stay, he began to attend some groups. Cymbalta dose was increased to 90 mg daily. Seroquel was stopped and Zyprexa 5 mg qhs was prescribed to address ruminative thinking. Patient has refused other medication changes, such as adding Wellbutrin, a stimulant or lithium. Mood has improved somewhat. Suicidal ideation has remitted. Ruminations seem to have improved. Progress note from date of discharge, 09/12/17: Case and treatment plan discussed in team meeting. Staff reports that the patient is denying suicidal ideation. He is prepared to leave and is calm about leaving. Patient seen at 10:06 AM with Carolin Leon LCSW. Patient appears awake and alert. States he is not sure what to expect when he arrives at [facility]. Affect is calm and blunted. Reports having limited retention for what he reads in a book. Reports sleep was broken by middle of the night awakenings. Describes mood as not agitated but a bit anxious, just feeling unsettled going into the unknown. Rates sad mood 5/10 and anxiety still a 5/10. Feels hopeless still a little bit. Feels helpless somewhat, he guesses. Denies feeling worthless. Feels guilty about parts of his life. Denies active and passive suicidal ideation. Denies homicidal ideation. Denies auditory and visual hallucinations and paranoid ideation. Reports appetite is low but on the cusp of picking up a little. Energy is low to medium. [place] dizzy yesterday for the third time here. I advised him to push fluids and to get up slowly. Feels ready and safe for discharge. IMPRESSION: Condition improved. Okay for discharge today to go to the [facility]. Discharge HBIPS - Tobacco Use Treatment Offered Post DC Medications Offered: Not Applicable Post DC Tobacco Treatment Plan: Not Applicable - EtOH/Drug Use D/O Treatment Offered Post DC Medications Offered: NA-No EtOH/Drug Use D/O Post DC EtOH/SubAbuse TX Plan: NA-No EtOH/Drug Use D/O Metabolic Screening - Screen if on a Neuroleptic Medication - Metabolic screening should include: - Blood Pressure, BMI, Glucose or Hgb A1c, & a - Lipid profile from within the past 365 days. Metabolic Screening () Not Applicable, patient not on a neuroleptic. OR () Patient on a neuroleptic(s) . Enter below results for Hemoglobin A1C, and lipid panel if obtained during the last 365 days. BMI: 24.000 Blood Pressure: 111/68 Laboratory Results From [facility] (If applicable): [x] Lab Cholesterol 152 MG/DL 08/30/17 0630 Cholesterol/HDL Ratio 3 % 08/30/17 0630 HDL Cholesterol 49 mg/dL 08/30/17 0630 Hemoglobin A1c 5.8 % 08/17/17 0655 LDL Cholesterol, Calc 87 mg/dL 08/30/17 0630 Triglycerides 84 mg/dL 08/30/17 0630 Discharge Instructions General Discharge Information Multiple Neuroleptics: ([x]) Not Applicable OR Document below three failed attempts at monotherapy, or a plan to taper to monotherapy, or augmentation of Clozapine. () Discharge Diet Regular Discharge Activity Normal DC Disposition: The patient is going to the [facility] today, 09/11/17. This includes a [facility]. He plans to return [facility] for [facility] after [facility]. Referrals Ordered Referrals Provider Referral 09/11/17 For Groups: [[facility]] [facility] to [facility] [address] [address] Prescriptions Stop taking the following medications: Lorazepam (Ativan) 0.5 MG TABLET ORAL THREE TIMES A DAY NEEDED as needed for ANXIETY Quetiapine Fumarate (Quetiapine Fumarate) 25 MG TABLET ORAL AT BEDTIME as needed for INSOMNIA Duloxetine HCl (Duloxetine HCl) 20 MG CAPSULE.DR ORAL DAILY Trazodone HCl (Trazodone HCl) 100 MG TABLET ORAL AT BEDTIME Zolpidem Tartrate (Ambien) 10 MG TABLET ORAL AT BEDTIME as needed for SLEEP Continue taking these medications: Cyclobenzaprine HCl (Cyclobenzaprine HCl) 10 MG TABLET 10 Milligram ORAL THREE TIMES A DAY NEEDED as needed for SPASMS Comments: Last Taken:NOT GIVEN IN THE HOSPITAL Time: Meloxicam (Meloxicam) 15 MG TABLET 15 Milligram ORAL DAILY Comments: Last Taken:09/10/17 Time:1700 Multiple Vitamin (Multivitamins) 1 EACH TABLET 1 Tablet ORAL DAILY Comments: Last Taken:09/11/17 Time:0900 Calcium Carbonate/Vitamin D3 (Os-[place] 500+D3 Caplet) 500 MG-200 TABLET 1 Tablet ORAL TWICE DAILY Instructions: TAKE WITH FOOD Comments: Last Taken:09/11/17 Time:0900 Cyanocobalamin (Vitamin B-12) (B-12) 1,000 MCG TABLET 1,000 Microgram ORAL DAILY Comments: Last Taken:09/11/17 Time:0900 Start taking the following new medications: Duloxetine Hydrochloride (Cymbalta) 30 MG CAPSULE.DR 3 Capsule ORAL DAILY Qty = 42 No Refills Comments: Last Taken:09/11/17 Time:0900 Olanzapine (Olanzapine) 5 MG TABLET 5 Milligram ORAL AT BEDTIME Qty = 14 No Refills Comments: Last Taken:09/10/17 Time:2200 Melatonin (Melatonin) 3 MG TABLET 3 Milligram ORAL AT BEDTIME Qty = 14 No Refills Comments: Last Taken:09/10/17 Time:2200 Trazodone HCl (Trazodone HCl) 150 MG TABLET 1 Tablet ORAL AT BEDTIME Qty = 14 No Refills Comments: Last Taken:09/10/17 Time:2200 Other Inst/Recommendations See PCP for medical conditions listed above. Pls get up slowly/push fluids. Copies To: Winsome Roach APRN
== END 2017-09-11 11:00 | DRG 885 ==
LOC: CP SOUTH 18:42
PROVIDERS: Psychiatry & Neurology Psychiatry
DX: F33.2 Major depressive disorder, recurrent severe without psychotic features (principal); G43.909 Migraine, unspecified, not intractable, without status migrainosus; K21.9 Gastro-esophageal reflux disease without esophagitis; M54.5 Low back pain
CPT/HCPCS: 36415; 93005; 93010